=== PATIENT | male | born 1945 | race African-American/Black ===

== ENCOUNTER 2025-01-26 14:16 | Outpatient (AMB) | payer OTHER, SELFPAY ==
--- OUTSIDE RECORDS SUMMARY | 2024-06-23 11:30 | XMS_ITS ---
Author Organization [facility] [place] Address [address] [facility] [address] [place] [address] Care Team Providers Care Gas Engine Operator Generators Name Role Phone Migration, Provider Unavailable Unavailable REASON FOR VISIT CPX Encounters Encounter Location Date Provider Diagnosis [address] [address] 06/23/2024 Provider Migration Plan Of Treatment Next Appt Details Provider Name:Janelle Dietz, 03/04/2025 02:30:00 PM, [address] [place] [address], [place] [address], [place], [address], [phone] Progress Notes * ELENA PIERCEDOB:1945 ([age] yo M)Acc No.[id number]:06/23/2024 Progress Notes Patient: ELENA CHAMPAGNE Provider: Kevin lee Migration :1945 A ge:78 Y S ex:Male Date:06/23/2024 Address:[address] [place], [place] [phone] Subjective: * Chief Complaints: * C PX * Ocular Surgical History: Objective: Vision Examination: * Electronic signature of Prov ider Migration on 01/26/2025 at 06:03 PM EDT Sign off status: Pending * Provider: Kevin lee Migration Date: 06/23/2024 Generated for Kassandra hope/Molly/eTjennifersmitting on: 01/26/2025 06:03 PM EDT
--- OUTSIDE RECORDS SUMMARY | 2024-06-23 11:30 | XMS_ITS ---
Author Organization [facility], [place] Address [address] [facility] [address] [place] [address] Care Team Providers Care Dehydrator Tender Name Role Phone Kg Blackwood Unavailable [phone] REASON FOR VISIT CPX Encounters Encounter Location Date Provider Diagnosis [address] [place] [address] 06/23/2024 Kg Blackwood Plan Of Treatment Next Appt Details Provider Name:Janelle Dietz, 03/04/2025 02:30:00 PM, [address] [place] [address], Suite [facility], [place], [address], [phone] Progress Notes * ELENA PIERCEDOB:1945 ([age] yo M)Acc No.[id number]:06/23/2024 Progress Notes Patient: ELENA CHAMPAGNE Provider: Jonh VASQUEZ :1945 A ge:78 Y S ex:Male Date:06/23/2024 Address:[address] [place], [place] [phone] Subjective: * Chief Complaints: * C PX * Ocular Surgical History: Objective: Vision Examination: * Electronic signature of Darion Blackwood PA-C on 01/26/2025 at 06:04 PM EDT Sign off status: Pending * Provider: Jonh VASQUEZ Date: 06/23/2024 Generated for Kassandra ng/Faihsang/eTransmitting on: 0 01/26/2025 06:04 PM EDT
--- OUTSIDE RECORDS SUMMARY | 2024-09-18 11:30 | XMS_ITS ---
Author Organization [facility] [place] Address [address] [facility] [address] [place] [address] Care Team Providers Care Principal Systems Architect Name Role Phone Kg Blackwood Unavailable [phone] REASON FOR VISIT Follow-up Appt Encounters Encounter Location Date Provider Diagnosis [address] [place] [address] 09/18/2024 Kg Blackwood Plan Of Treatment Next Appt Details Provider Name:Janelle Dietz, 03/04/2025 02:30:00 PM, [address] [place] [address], [address], [place], [address], [phone] Progress Notes * ELENA PIERCEDOB:1945 ([age] yo M)Acc No.[id number]:09/18/2024 Progress Notes Patient: ELENA CHAMPAGNE Provider: Jonh VASQUEZ :1945 A ge:78 Y S ex:Male Date:09/18/2024 Address:[address] [place], [place] [phone] Subjective: * Chief Complaints: * F ollow-up Appt * Ocular Surgical History: Objective: Vision Examination: * Electronic signature of Darion Blackwood PA-C on 01/26/2025 at 06:04 PM EDT Sign off status: Pending * Provider: Jonh VASQUEZ Date: 09/18/2024 Generated for Printi ng/Faxing/eTransmitting on: 0 01/26/2025 06:04 PM EDT
--- OUTSIDE RECORDS SUMMARY | 2024-10-01 10:30 | XMS_ITS ---
Author Organization [facility] [place] Address [address] [facility] [address] [place] [address] Care Team Providers Care Shingles Roofer Name Role Phone Kg Blackwood Unavailable [phone] REASON FOR VISIT Follow-up Appt Encounters Encounter Location Date Provider Diagnosis [address] [place] [address] 10/01/2024 Kg Blackwood Plan Of Treatment Next Appt Details Provider Name:Janelle Dietz, 03/04/2025 02:30:00 PM, [address] [place] [address], [address], [place], [address], [phone] Progress Notes * ELENA PIERCEDOB:1945 ([age] yo M)Acc No.[id number]:10/01/2024 Progress Notes Patient: ELENA CHAMPAGNE Provider: Jonh VASQUEZ :1945 A ge:78 Y S ex:Male Date:10/01/2024 Address:[address] [place], [place] [phone] Subjective: * Chief Complaints: * F ollow-up Appt * Ocular Surgical History: Objective: Vision Examination: * Electronic signature of Darion Blackwood PA-C on 01/26/2025 at 06:04 PM EDT Sign off status: Pending * Provider: Jonh VASQUEZ Date: 10/01/2024 Generated for Printi ng/Faxing/eTransmitting on: 0 01/26/2025 06:04 PM EDT
--- OUTSIDE RECORDS SUMMARY | 2024-11-02 09:45 | XMS_ITS ---
Author Organization [facility] [place] Address [address] [place] [address] Care Team Providers Care Fire Sprinkler Inspector Name Role Phone Kg Blackwood Unavailable [phone] Allergies Allergen (clinical drug ingredient) Drug/Non Drug [...] Location Date Provider Diagnosis [facility], [address] [place] [phone] 11/02/2024 Kg Blackwood Assessments Encounter Date Diagnosis [...] Months, Reason: Echo f/u Provider Name:Janelle Dietz, 03/04/2025 02:30:00 PM, [address] [place] [address], [place] [address], [place], [address], [phone] Progress Notes * ELENA PIERCEDOB:1945 ([age] yo M)Acc No.[id number]:11/02/2024 Progress Notes Patient: ELENA CHAMPAGNE Provider: Jonh VASQUEZ :1945 A ge:79 Y S ex:Male Date:11/02/2024 Address:[address] [place], [place] [phone] Subjective: * Chief Complaints: * F ollow-up [...] VASQUEZ Date: 0 11/02/2024 Generated for Kassandra hope/Molly/Radhasmitting on: 0 01/26/2025 06:04 PM EDT
--- NOTE | 2025-01-26 14:21 | A.OFFVIS_ITS ---
Intake Visit Reasons: memory loss Allergies No Known Allergies Allergy (Verified 01/26/25 11:49) Medication List - Last Reconciled 01/26/25 by Senthil Rao MD acetaminophen 1,000 mg PO TID PRN allopurinol 300 mg PO DAILY amlodipine-valsartan 10-160 mg 1 tab PO DAILY aspirin 81 mg PO DAILY atorvastatin (Lipitor) 20 mg PO DAILY escitalopram oxalate 5 mg PO DAILY omeprazole 20 mg PO DAILY oxybutynin chloride ER 15 mg PO DAILY spironolactone 25 mg PO DAILY HPI Comments Details: This is a 79 yr old righthanded man who is here with his for evaluation of some morning headaches in the last 6 weeks usually relieved by taking 2 Tylenol within a couple of hours. He has no visual symptoms no sinus congestion. He has a history of obstructive sleep apnea but has not been using a mask for a few years. He is being treated for hypertension hyperlipidemia GERD prostatism. 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 He sometimes uses a wrong word and has some word searching difficulties. There are no safety issues with his driving or getting lost. [facility] Medical History (Updated 01/26/25 @ 14:31 by Senthil Rao MD) Memory loss KENNY (obstructive sleep apnea) Hypertension HLD (hyperlipidemia) Assessment & Plan Assessment & Plan (1) Tension headache: Code(s): G44.209 - Tension-type headache, unspecified, not intractable Category: Medical (2) Memory loss: Code(s): R41.3 - Other amnesia Category: Medical (3) KENNY (obstructive sleep apnea): Code(s): G47.33 - Obstructive sleep apnea (adult) (pediatric) Category: Medical Plan Home sleep study, MRI brain, SEdrate Orders: Orders Erythrocyte Sedimentation Rate Today G44.209 - Tension-type headache, unspecified, not intractable MR head/brain wo con 4 Weeks R41.3 - Other amnesia RT home sleep study Today G47.33 - Obstructive sleep apnea (adult) (pediatric) Coding Level of Care Code New Pt Level 5 (18705) Diagnoses Tension headache G44.209 Memory loss R41.3 KENNY (obstructive sleep apnea) G47.33
--- OUTSIDE RECORDS SUMMARY | 2025-01-26 18:04 | XMS_ITS | Clinical Summary ---
Author Organization [address] Address [address] [place] [phone] Phone Care Team Providers Care Rough Rice Grader Name Role Phone Kg Blackwood Primary Care Provider [phone] Allergies No known active allergies Medications allopurinoL (ZYLOPRIM) 300 mg tablet Take 1 tablet (300 mg total) by mouth 1 (one) time each day. Active aspirin 81 mg EC tablet Take 1 tablet (81 mg total) by mouth 1 (one) time each day. 4 Active atorvastatin (LIPITOR) 20 mg tablet Take 1 tablet (20 mg total) by mouth at bedtime. Active escitalopram (LEXAPRO) 10 mg tablet Take 1 tablet (10 mg total) by mouth 1 (one) time each day. 4 Active omeprazole (PriLOSEC) [address] capsule Take 1 capsule (20 mg total) by mouth 1 (one) time each day. Active spironolactone (ALDACTONE) 25 mg tablet Take 1 tablet (25 mg total) by mouth 1 (one) time each day. Active amLODIPine-vals ruslan-hcthiazid 10-160-25 mg tablet Take by mouth 1 (one) time each day. Active oxyBUTYnin XL (DITROPAN-XL) 15 mg 24 hr tablet Take 1 tablet (15 mg total) by mouth 1 (one) time each day. Do not crush, chew, or split. Active fluticasone propionate (FLONASE) 50 mcg/actuation nasal spray Administer 1 spray into each nostril 1 (one) time each day. Shake gently. Before first use, prime pump. After use, clean tip and replace cap. Active tadalafiL (CIALIS) 20 mg tablet Take 1 tablet (20 mg total) by mouth 1 (one) time each day if needed for erectile dysfunction. Active Active Problems Problem Noted Date Diagnosed Date HTN (hypertension) 10/23/2024 Assessment & Plan (10/23/2024 5:14 PM EDT): He has been on medication for hypertension for long time. Blood pressure is well-controlled. I will continue same regimen. Will obtain echocardiogram Orders: Transthoracic echocardiogram (TTE) complete with PRN contrast, bubble, strain, and 3D order panel; Future KENNY (obstructive sleep apnea) 10/23/2024 Assessment & Plan (10/23/2024 5:14 PM EDT): Has been wearing CPAP. Abnormal EKG 10/22/2024 Assessment & Plan (10/23/2024 5:14 PM EDT): EKG shows nonspecific T wave abnormality and this is likely caused by longstanding hypertension. He does not have a symptoms to suggest angina or heart failure. Will obtain echocardiogram to further assess cardiac structure and function. Will hold off ischemic workup for now until echocardiogram is performed. Orders: Ambulatory referral to Cardiology ECG 12 lead Surgical History Surgery Date Site/Laterality Comments HERNIA REPAIR PROCEDURE: HISTORICAL HERNIA REPAIR/ING Medical History Medical History Date Comments History of TIA (transient is chemic attack) 04/21/2018 DX:History of TIA (transient ischemic attack) HTN (hypertension) 04/21/2018 DX:HTN (hyper tension) Anxiety 04/21/2018 DX:Anxiety GERD (gastroesophageal reflux disease) 8 DX:GERD (gastroesophageal reflux disease) Osteoarthritis of knees, bilateral 04/21/2018 DX:Osteoarthritis of knees, bilateral Gout 04/21/2018 DX:Gout KENNY (obstructive sleep apnea) 02/06/2018 DX :KENNY (obstructive sleep apnea) Obesity without serious comorbidity 02/06/2018 DX:Obesity without serious comorbidity High blood pressure DX:High bloo d pressure Arthritis DX:Arthritis Social History Tobacco Use Types Packs/Day Years Used Date Smoking Tobacco: Never Smokeless Tobacco: Never Tobacco Cessation:Counseling Given: Not Answered Alcohol Use Standard Drinks/Week Comments Yes 0 (1 standard drink = 0.6 oz pur e alcohol) Sex and Gender Information Value Date Recorded Sex Assigned at Not on file Legal Sex Male 1:49 PM EST Gender Identity Not on file Sexual Orientation Not on file Obstetrics History Last Filed Vital Signs Vital Sign Reading Time Taken Comments Blood Pressure 120/60 10/23/2024 2:50 PM EDT Pulse 74 10/23/2024 2:50 PM EDT Temperature - - Respiratory Rate - - Oxygen Saturation 99% 10/23/2024 2:50 PM EDT Inhaled Oxygen Concentration - - Weight 99.3 kg (219 lb) 10/23/2024 2:50 PM EDT Height 167.6 cm (5' 6 ) 10/23/2024 2:50 PM EDT Body Mass Index 35.35 10/23/2024 2:50 PM EDT Plan of Treatment Upcoming Encounters Date Type Department Care Team (Late st Contact Info) Description 02/03/2025 1:30 PM EDT Ancillary Procedure [facility] [address] [facility] [address] [place] [address] Health Maintenance Due Date Last Done Comments DTaP,Tdap,and Td Vaccines (1 - Tdap) 10/04/1966 Pneumococcal Vaccine: 50+ Years (1 of 1 - PCV) 10/04/1997 Zoster Vaccines (1 of 2) 10/04/1997 RSV Immunization Adult Patients (1 - 1-dose 75+ series) 10/04/2022 Depression Screening 05/13/2024 Falls Risk Assessment 06/24/2024 Hepatitis C Screening 06/24/2024 Medicare Annual Wellness Visit 06/24/2024 Social Influencers of Health Screening 06/24/2024 COVID-19 Vaccine (3 - 2024-2 6 season) 2025 08/30/2020, 08/02/2020 Influenza Vaccine (#1) 2025 Hypertension/CHF/CAD Annual BMP Blood Test 06/23/2025 06/23/2024 Cholesterol Screening (Lipid Panel) 06/23/2029 06/23/2024 HIB Vaccines Aged Out No longer eligi ble based on patient's age to complete this topic HPV Vaccines Aged Out No longer eligi ble based on patient's age to complete this topic Hepatitis A Vaccines Aged Out No long er eligible based on patient's age to complete this topic Hepatitis B Vaccines Aged Out No long er eligible based on patient's age to complete this topic IPV Vaccines Aged Out No longer eligi ble based on patient's age to complete this topic MMR Vaccines Aged Out No longer eligi ble based on patient's age to complete this topic Meningococcal ACWY Vaccine Aged Out N o longer eligible based on patient's age to complete this topic Meningococcal B Vaccine Aged Out No l onger eligible based on patient's age to complete this topic RSV Immunization Patients Under 20 months Aged Out No longer eligible b ased on patient's age to complete this topic Varicella Vaccines Aged Out No longer eligible based on patient's age to complete this topic Procedures Procedure Name Priority Date/Time Associated Diagnosis Comments COMPREHENSIVE METABOLIC PANEL Routine 06/23/2024 12:00 AM EST Chronic fatigue, unspecified Pain in unspecified joint Hyperlipidemia, unspecified Essential (primary) hypertension LIPID PANEL WITH REFLEX TO DIRECT LDL Routine 06/23/2024 12:00 AM EST Chronic fatigue, unspecified Pain in unspecified joint Hyperlipidemia, unspecified Essential (primary) hypertension from Last 3 Months or Most Recently Relevant to Health Maintenance Results * (ABNORMAL) Lipid panel with reflex to direct LDL (06/23/2024 12:00 AM EST) Cholesterol 152 0 - 200 mg/dL LAB CHEMISTRY METHOD 06/23/2024 7:35 PM EST [facility] Triglycerides 218(H) 0 - 150 mg/dL LAB CHEMISTRY METHOD 06/23/2024 7:35 PM EST [facility] HDL 46 >=40 mg/dL LAB CHEMISTRY METHOD 06/23/2024 7:35 PM EST [facility] LDL Calculated 62 0 - 100 mg/dL LAB CHEMISTRY METHOD 06/23/2024 7:35 PM [facility] VLDL Cholesterol John 43.6 mg/dL LAB CHEMISTRY METHOD 06/23/2024 7:35 PM [facility] Non HDL Chol. (LDL+VLDL) 106 <145 mg/dL LAB CHEMISTRY METHOD 06/23/2024 7:35 PM [facility] Chol/HDL Ratio 3.3 0.0 - 4.4 LAB CHEMISTRY METHOD 06/23/2024 7:35 PM [facility] Blood Venous blood specimen / Unknown 06/23/2024 06/23/2024 6:08 PM EST us Kg VASQUEZ LAB BLOOD ORDERABLES Final Res ult [facility] [address] [place] [address], * Comprehensive metabolic panel (06/23/2024 12:00 AM EST) Sodium 140 133 - 145 mmol/L LAB CHEMISTRY METHOD 06/23/2024 7:35 PM [facility] Potassium 4.0 3.5 - 5.5 mmol/L LAB CHEMISTRY METHOD 06/23/2024 7:35 PM [facility] Chloride 109 96 - 110 mmol/L LAB CHEMISTRY METHOD 06/23/2024 7:35 PM [facility] CO2 22 21 - 32 mmol/L LAB CHEMISTRY METHOD 06/23/2024 7:35 PM [facility] Anion Gap 9 3 - 11 LAB CHEMISTRY METHOD 06/23/2024 7:35 PM [facility] Glucose 100 70 - 100 mg/dL LAB CHEMISTRY METHOD 06/23/2024 7:35 PM [facility] BUN 14 5 - 25 mg/dL LAB CHEMISTRY METHOD 06/23/2024 7:35 PM [facility] Creatinine 1.14 0.70 - 1.30 mg/dL LAB CHEMISTRY METHOD 06/23/2024 7:35 PM [facility] eGFR 67 >=60 mL/min/1. 73m2 LAB CHEMISTRY METHOD 06/23/2024 7:35 PM [facility] Comment:Calculation based on the Chronic Kidney Disease Epidemiology Collaboration (CKD-EPI) equation refit without adjustment for race. BUN/Creatinine Ratio 12.3 LAB CHEMISTRY METHOD 06/23/2024 7:35 PM [facility] Calcium 8.7 8.5 - 10.5 mg/dL LAB CHEMISTRY METHOD 06/23/2024 7:35 PM [facility] AST (SGOT) 22 10 - 42 unit/L LAB CHEMISTRY METHOD 06/23/2024 7:35 PM [facility] ALT (SGPT) 17 10 - 60 unit/L LAB CHEMISTRY METHOD 06/23/2024 7:35 PM [facility] Alkaline Phosphatase 111 42 - 121 unit/L LAB CHEMISTRY METHOD 06/23/2024 7:35 PM [facility] Total Protein 7.2 6.0 - 8.0 g/dL LAB CHEMISTRY METHOD 06/23/2024 7:35 PM [facility] Albumin 3.3 3.2 - 5.0 g/dL LAB CHEMISTRY METHOD 06/23/2024 7:35 PM [facility] Total Bilirubin 0.7 0.0 - 1.4 mg/dL LAB CHEMISTRY METHOD 06/23/2024 7:35 PM [facility] Blood Venous blood specimen / Unknown 06/23/2024 06/23/2024 6:08 PM EST us Kg VASQUEZ LAB BLOOD ORDERABLES Final Res ult [facility] [address] [place] [address], [place] [phone] from Last 3 Months or Most Recently Relevant to Health Maintenance Insurance [employer] Care Teams Rough Rice Grader Relationship Specialty Start Date End Date Kg Blackwood PA [address] [place] [id number] PCP - General Primary Care 10/14/24
--- OUTSIDE RECORDS SUMMARY | 2025-01-26 18:04 | XMS_ITS | Patient Health Record ---
Author Organization [facility] [place] Address [address] [place] [address] Care Team Providers Care Collection Analyst Name Role Phone JonahKg lopez Unavailable [phone] Migration, Provider Unavailable Unavailable Janelle Dietz Unavailable [phone] Allergies Allergen (clinical drug ingredient) Drug/Non Drug Allergy documented on EMR Reaction Allergy Type Onset Date Status clonazepam clonazePAM Unknown Drug Allergy Activ e sulindac Sulindac Unknown Drug Allergy Active torsemide Torsemide Unknown Drug Allergy Active Reason For Referral No Information Medications Medication SIG (Take, Route, Frequency, Duration) Notes Start Date End Date Status Meloxicam 7.5 MG Tablet 1 tablet Orally Once a day Active amLODIPine Besylate-Valsartan 10-160 MG Tablet 1 tablet Orally Once a day; Duration: 90 days Active Allopurinol 300 MG Tablet 1 tablet Orall y Once a day; Duration: 90 days Active Lexapro 10 MG Tablet 1 tablet Orally Onc e a day Active Loperamide HCl 2 MG Tablet 1 tablet as n eeded Orally Four times a day Active Baclofen 5 MG Tablet 1 tablet as needed Orally Once a day; Duration: 90 days 12/30/2024 Active Spironolactone 25 MG Tablet 1 tablet Ora lly Once a day Active Tadalafil 20 MG Tablet 1 tablet as neede d Orally Once a day Active Omeprazole 20 MG Capsule Delayed Release 1 capsule 1/2 to 1 hour before morning meal Orally Once a day Active oxyBUTYnin Chloride 5 MG Tablet 1 tablet Orally Once a day Active Fluticasone Propionate 50 MCG/ACT Suspension 1 spray in each nostril Nasally Twice a day Active Voltaren 1 % Gel as directed Externally Active Atorvastatin Calcium 20 MG Tablet 1 tablet Orally Once a day Active Vital Signs Heart Rate 80 /min 11/02/2024 Temperature 98.2 degrees Fahrenheit 11/02/2024 Respiratory Rate 12 /min 11/02/2024 Oximetry 97 % 11/02/2024 Blood pressure diastolic 80 mm Hg 11/02/2024 Weight-kg 96.62 kg 11/02/2024 Blood pressure systolic 148 mm Hg 11/02/2024 Weight 213 lbs 11/02/2024 Encounters Encounter Location Date Provider Diagnosis [facility] [place] [address] [place] [phone] 02/17/2024 Provider Migration [facility] [place] [address] [place] [phone] 06/23/2024 Kg Blackwood [facility] [place] [address] [place] [phone] 06/23/2024 Provider Migration [facility] [place] [address] [place] [phone] 09/18/2024 Kg Blackwood [facility] [place] [address] [place] [phone] 10/01/2024 Kg Blackwood [facility] [place] [address] [place] [phone] 11/02/2024 Kg Blackwood [facility] [place] [address] [place] [phone] 12/08/2024 Janelleher Dietz [facility] [place] [address] [place] [phone] 12/30/2024 Janelle Dietz Muscle spasm M62.838 Assessments Encounter Date Diagnosis (ICD Code) Assessment Notes Treatment Notes Treatment Clinical Notes Section Notes 12/30/2024 Muscle spasm (ICD-10 - M62.838) 11/02/2024 Pt reports feeling up and down-some days headache, some feels like running, some days slow hasnt take c pap in a couple months-f/u with sleep medicine-bee n over 2 years Plan Of Treatment Next Appt Details Provider Name:Janelle Dietz, 03/04/2025 02:30:00 PM, [address], Suite [facility], [place], [address], [phone] Insurance Providers Payer Name Payer Address Payer Phone Subscriber Number Group Number Insured Name Patient Relationship to Insured Coverage Start Date Coverage End Date [facility] Medicare Plan [address] [address] [place] [address] [id number] ELENA PIERCE Self - patient is the insured
--- OUTSIDE RECORDS SUMMARY | 2025-01-26 18:05 | XMS_ITS | Encounter Summary ---
Author Organization [facility] Address [address] [place] [address] Care Team Providers Care Chair Frame Builder Name Role Phone Kg Blackwood Primary Care Provider [phone] Encounter Details Date Type Department Care Team (Late Contact Info) Description 06/23/2024 Lab Requisition [facility] - Main Lab [address] [facility] [place] [address] Kg Blackwood PA 299 [facility] [address] [place], [place] [id number] Chronic fatigue, unspecified; Pain in unspecified joint; Hyperlipidemia, unspecified; Essential (primary) hypertension Social History Tobacco Use Types Packs/Day Years Used Date Smoking Tobacco: Never Assessed Alcohol Use Standard Drinks/Week Comments Yes 0 (1 standard drink = 0.6 oz pur e alcohol) Sex and Gender Information Value Date Recorded Sex Assigned at Not on file Legal Sex Male 1:49 PM EST Gender Identity Not on file Sexual Orientation Not on file documented as of this encounter Plan of Treatment Upcoming Encounters Date Type Department Care Team (Late Contact Info) Description 02/03/2025 1:30 PM EDT Ancillary Procedure [facility] [address] [facility] [address] [place] [address] documented as of this encounter Procedures Procedure Name Priority Date/Time Associated Diagnosis Comments PROSTATE SPECIFIC ANTIGEN SCREEN Routine 06/23/2024 12:00 AM EST Chronic fatigue, unspecified Pain in unspecified joint Hyperlipidemia, unspecified Essential (primary) hypertension SST - GOLD Routine 06/23/2024 12:00 AM EST Chronic fatigue, unspecified Pain in unspecified joint Hyperlipidemia, unspecified Essential (primary) hypertension LIPID PANEL WITH REFLEX TO DIRECT LDL Routine 06/23/2024 12:00 AM EST Chronic fatigue, unspecified Pain in unspecified joint Hyperlipidemia, unspecified Essential (primary) hypertension CBC WITH AUTO DIFFERENTIAL Routine 06/23/2024 12:00 AM EST Chronic fatigue, unspecified Pain in unspecified joint Hyperlipidemia, unspecified Essential (primary) hypertension CBC AND DIFFERENTIAL Routine 06/23/2024 12:00 AM EST Chronic fatigue, unspecified Pain in unspecified joint Hyperlipidemia, unspecified Essential (primary) hypertension HEMOGLOBIN A1C Routine 06/23/2024 12:00 AM EST Chronic fatigue, unspecified Pain in unspecified joint Hyperlipidemia, unspecified Essential (primary) hypertension COMPREHENSIVE METABOLIC PANEL Routine 06/23/2024 12:00 AM EST Chronic fatigue, unspecified Pain in unspecified joint Hyperlipidemia, unspecified Essential (primary) hypertension documented in this encounter Results * SST tube (06/23/2024 12:00 AM EST) Extra Tube Hold for add-ons. 10/08/2024 8:03 AM EDT [facility] Comment:Auto resulted. Blood Venous blood specimen / Unknown 06/23/2024 06/23/2024 6:08 PM EST us Kg VASQUEZ LAB BLOOD ORDERABLES Final Res ult [facility] [address] [place] [address], * (ABNORMAL) CBC auto differential (06/23/2024 12:00 AM EST) [facility] WBC 7.6 4.8 - 10.8 K/mcL LAB HEMETOLOGY METHOD 06/23/2024 8:36 PM [facility] RBC 4.30(L) 4.50 - 5.50 M/mcL LAB HEMETOLOGY METHOD 06/23/2024 8:36 PM EST [facility] Hemoglobin 14.0 13.5 - 17.5 g/dL LAB HEMETOLOGY METHOD 06/23/2024 8:36 PM [facility] Hematocrit 42.9 42.0 - 54.0 % LAB HEMETOLOGY METHOD 06/23/2024 8:36 PM [facility] MCV 100.2(H) 79.0 - 98.0 FL LAB HEMETOLOGY METHOD 06/23/2024 8:36 PM [facility] MCH 32.7(H) 27.0 - 32.0 pcg LAB HEMETOLOGY METHOD 06/23/2024 8:36 PM [facility] MCHC 32.6 32.0 - 37.0 g/dL LAB HEMETOLOGY METHOD 06/23/2024 8:36 PM [facility] RDW 13.8 11.0 - 15.0 % LAB HEMETOLOGY METHOD 06/23/2024 8:36 PM [facility] Platelets 244 130 - 400 K/mcL LAB HEMETOLOGY METHOD 06/23/2024 8:36 PM [facility] MPV 9.8 7.0 - 11.0 FL LAB HEMETOLOGY METHOD 06/23/2024 8:36 PM [facility] NRBC 0.0 <1.0 % LAB HEMETOLOGY METHOD 06/23/2024 8:36 PM [facility] NRBC Absolute 0.00 <0.10 K/mcL LAB HEMETOLOGY METHOD 06/23/2024 8:36 PM [facility] Neutrophils Relative 55.2 % LAB HEMETOLOGY METHOD 06/23/2024 8:36 PM [facility] Lymphocytes Relative 26.3 % LAB HEMETOLOGY METHOD 06/23/2024 8:36 PM [facility] Monocytes Relative 11.3 % LAB HEMETOLOGY METHOD 06/23/2024 8:36 PM [facility] Eosinophils Relative 5.8 % LAB HEMETOLOGY METHOD 06/23/2024 8:36 PM [facility] Basophils Relative 0.7 % LAB HEMETOLOGY METHOD 06/23/2024 8:36 PM [facility] Immature Granulocytes Relative 0.7 % LAB HEMETOLOGY METHOD 06/23/2024 8:36 PM [facility] Neutrophils Absolute 4.20 1.50 - 7.00 K/mcL LAB HEMETOLOGY METHOD 06/23/2024 8:36 PM [facility] Lymphocytes Absolute 2.00 1.00 - 5.00 K/mcL LAB HEMETOLOGY METHOD 06/23/2024 8:36 PM [facility] Monocytes Absolute 0.86 0.20 - 1.00 K/mcL LAB HEMETOLOGY METHOD 06/23/2024 8:36 PM [facility] Eosinophils Absolute 0.44 0.00 - 0.50 K/mcL LAB HEMETOLOGY METHOD 06/23/2024 8:36 PM [facility] Basophils Absolute 0.05 0.00 - 0.20 K/mcL LAB HEMETOLOGY METHOD 06/23/2024 8:36 PM [facility] Immature Granulocytes Absolute 0.05(H) 0.00 - 0.03 K/mcL LAB HEMETOLOGY METHOD 06/23/2024 8:36 PM EST [facility] Blood Venous blood specimen / Unknown 06/23/2024 06/23/2024 6:08 PM EST us Kg VASQUEZ LAB BLOOD ORDERABLES Final Res ult Performing Organization Address [facility] de Phone Number [facility] [address] [place] [address], * Prostate specific antigen screen (06/23/2024 12:00 AM EST) PSA 2.55 0.00 - 4.00 ng/mL LAB CHEMISTRY METHOD 06/23/2024 7:35 PM EST [facility] Blood Venous blood specimen / Unknown 06/23/2024 06/23/2024 6:08 PM EST Narrative [facility] - 06/23/2024 7:35 PM EST The Siemens Advia Centaur Chemiluminescent Immunoassay is used. Results obtained with different assay methods or kits cannot be used interchangeably. Results cannot be interpreted as absolute evidence of the presence or absence of malignant disease. us Kg VASQUEZ LAB BLOOD ORDERABLES Final Res ult Performing Organization Address [facility] Co de Phone Number [facility] [address] [place] [address], * Hemoglobin A1c (06/23/2024 12:00 AM EST) Hemoglobin A1C 5.1 <6.5 % LAB CHEMISTRY METHOD 06/23/2024 10:07 PM EST [facility] Mean Bld Glu Estim. 100 mg/dL LAB CHEMISTRY METHOD 06/23/2024 10:07 PM EST [facility] Blood Venous blood specimen / Unknown 06/23/2024 06/23/2024 6:08 PM EST us Kg VASQUEZ LAB BLOOD ORDERABLES Final Res ult [facility] [address] [place] [address], [place] [phone] * (ABNORMAL) Lipid panel with reflex to direct LDL (06/23/2024 12:00 AM EST) Cholesterol 152 0 - 200 mg/dL LAB CHEMISTRY METHOD 06/23/2024 7:35 PM EST [facility] Triglycerides 218(H) 0 - 150 mg/dL LAB CHEMISTRY METHOD 06/23/2024 7:35 PM EST [facility] HDL 46 >=40 mg/dL LAB CHEMISTRY METHOD 06/23/2024 7:35 PM EST [facility] LDL Calculated 62 0 - 100 mg/dL LAB CHEMISTRY METHOD 06/23/2024 7:35 PM EST [facility] VLDL Cholesterol John 43.6 mg/dL LAB CHEMISTRY METHOD 06/23/2024 7:35 PM EST [facility] Non HDL Chol. (LDL+VLDL) 106 <145 mg/dL LAB CHEMISTRY METHOD 06/23/2024 7:35 PM EST [facility] Chol/HDL Ratio 3.3 0.0 - 4.4 LAB CHEMISTRY METHOD 06/23/2024 7:35 PM [facility] Blood Venous blood specimen / Unknown 06/23/2024 06/23/2024 6:08 PM EST Kg VASQUEZ LAB BLOOD ORDERABLES Final Res ult [facility] [address] [place] [address], [place] [phone] * Comprehensive metabolic panel (06/23/2024 12:00 AM EST) Sodium 140 133 - 145 mmol/L LAB CHEMISTRY METHOD 06/23/2024 7:35 PM [facility] Potassium 4.0 3.5 - 5.5 mmol/L LAB CHEMISTRY METHOD 06/23/2024 7:35 PM [facility] Chloride 109 96 - 110 mmol/L LAB CHEMISTRY METHOD 06/23/2024 7:35 PM [facility] CO2 22 21 - 32 mmol/L LAB CHEMISTRY METHOD 06/23/2024 7:35 PM [facility] Anion Gap 9 3 - 11 LAB CHEMISTRY METHOD 06/23/2024 7:35 PM [facility] Glucose 100 70 - 100 mg/dL LAB CHEMISTRY METHOD 06/23/2024 7:35 PM [facility] BUN 14 5 - 25 mg/dL LAB CHEMISTRY METHOD 06/23/2024 7:35 PM [facility] Creatinine 1.14 0.70 - 1.30 mg/dL LAB CHEMISTRY METHOD 06/23/2024 7:35 PM [facility] eGFR 67 >=60 mL/min/1. 73m2 LAB CHEMISTRY METHOD 06/23/2024 7:35 PM [facility] Comment:Calculation based on the Chronic Kidney Disease Epidemiology Collaboration (CKD-EPI) equation refit without adjustment for race. BUN/Creatinine Ratio 12.3 LAB CHEMISTRY METHOD 06/23/2024 7:35 PM [facility] Calcium 8.7 8.5 - 10.5 mg/dL LAB CHEMISTRY METHOD 06/23/2024 7:35 PM [facility] AST (SGOT) 22 10 - 42 unit/L LAB CHEMISTRY METHOD 06/23/2024 7:35 PM [facility] ALT (SGPT) 17 10 - 60 unit/L LAB CHEMISTRY METHOD 06/23/2024 7:35 PM [facility] Alkaline Phosphatase 111 42 - 121 unit/L LAB CHEMISTRY METHOD 06/23/2024 7:35 PM [facility] Total Protein 7.2 6.0 - 8.0 g/dL LAB CHEMISTRY METHOD 06/23/2024 7:35 PM EST [facility] Albumin 3.3 3.2 - 5.0 g/dL LAB CHEMISTRY METHOD 06/23/2024 7:35 PM EST [facility] Total Bilirubin 0.7 0.0 - 1.4 mg/dL LAB CHEMISTRY METHOD 06/23/2024 7:35 PM EST [facility] Blood Venous blood specimen / Unknown 06/23/2024 06/23/2024 6:08 PM EST Kg VASQUEZ LAB BLOOD ORDERABLES Final Res ult [facility] [address] [place] [address], documented in this encounter Visit Diagnoses Diagnosis Chronic fatigue, unspecified Pain in unspecified joint Hyperlipidemia, unspecified Essential (primary) hypertension Unspecified essential hypertension documented in this encounter Care Teams Chair Frame Builder Relationship Specialty Start Date End Date Kg Blackwood PA [address] [place] [address] PCP - General Primary Care 10/14/24 documented as of this encounter
== END 2025-01-26 14:46 | disposition home or self-care (01) ==
PROVIDERS: PCP Internal Medicine; Visit Provider Psychiatry & Neurology Neurology
DX: G44.209 Tension-type headache, unspecified, not intractable (principal); R41.3 Other amnesia; G47.33 Obstructive sleep apnea (adult) (pediatric)
CPT/HCPCS: 99204

== ENCOUNTER 2025-01-26 14:16 | Outpatient (REF) | payer MEDICARE, SELFPAY | END 2025-01-26 14:17 | disposition home or self-care (01) | LOC: HO.LAB 14:16 | PROVIDERS: PCP Internal Medicine; Visit Provider Psychiatry & Neurology Neurology | DX: G44.209 Tension-type headache, unspecified, not intractable (principal); G47.33 Obstructive sleep apnea (adult) (pediatric) | CPT/HCPCS: 36415; 85652 ==

== ENCOUNTER 2025-03-28 11:17 | Outpatient (REF) | payer MEDICARE, SELFPAY ==
--- OUTSIDE RECORDS SUMMARY | 2023-09-30 08:30 | XMS_ITS ---
Author Organization [facility] [place] Address [address] [facility] [address] [place] [address] Care Team Providers Care Seamless Hosiery Knitter Name Role Phone Migration, Provider Unavailable Unavailable REASON FOR VISIT Follow-up Appt Encounters Encounter Location Date Provider Diagnosis [address] [place] [address] 09/30/2023 Provider Migration Plan Of Treatment Next Appt Details Provider Name:Janelle Dietz, 07/09/2025 09:00:00 AM, [address] [place] [address], [place] [address], [place], [address], [phone] Progress Notes * ELENA PIERCEDOB:1945 ([age] yo M)Acc No.[id number]:09/30/2023 Progress Notes Patient: ELENA CHAMPAGNE Provider: Kevin lee Migration :1945 A ge:77 Y S ex:Male Date:09/30/2023 Address:[address] [place], [place] [phone] Subjective: * Chief Complaints: * F ollow-up Appt * Ocular Surgical History: Objective: Vision Examination: * Electronic signature of Prov ider Migration on 03/28/2025 at 11:23 AM EST Sign off status: Pending * Provider: Kevin lee Migration Date: 09/30/2023 Generated for Kassandra hope/Molly/eTjennifersmitting on: 05/28/2024 11:23 AM EST
--- OUTSIDE RECORDS SUMMARY | 2024-01-09 10:00 | XMS_ITS ---
Author Organization [facility] [place] Address [address] [facility] [address] [place] [address] Care Team Providers Care Entertainment Lawyer Name Role Phone Migration, Provider Unavailable Unavailable REASON FOR VISIT Follow-up Appt Encounters Encounter Location Date Provider Diagnosis [address] [place] [address] 01/09/2024 Provider Migration Plan Of Treatment Next Appt Details Provider Name:Janelle Dietz, 07/09/2025 09:00:00 AM, [address] [place] [address], [place] [address], [place], [address], [phone] Progress Notes * ELENA PIERCEDOB:1945 ([age] yo M)Acc No.[id number]:01/09/2024 Progress Notes Patient: ELENA CHAMPAGNE Provider: Kevin lee Migration :1945 A ge:78 Y S ex:Male Date:01/09/2024 Address:[address] [place] [address] Subjective: * Chief Complaints: * F ollow-up Appt * Ocular Surgical History: Objective: Vision Examination: * Electronic signature of Prov ider Migration on 03/28/2025 at 11:25 AM EST Sign off status: Pending * Provider: Kevin lee Migration Date: 0 01/09/2024 Generated for Kassandra hope/Molly/eTjennifersmitting on: 05/28/2024 11:25 AM EST
--- OUTSIDE RECORDS SUMMARY | 2024-02-17 09:30 | XMS_ITS ---
Author Organization [facility] [place] Address [address] [facility] [address] [place] [address] Care Team Providers Care Engineering Clerk Name Role Phone Migration, Provider Unavailable Unavailable REASON FOR VISIT Follow-up Appt Encounters Encounter Location Date Provider Diagnosis [address] [place] [address] 02/17/2024 Provider Migration Plan Of Treatment Next Appt Details Provider Name:Janelle Dietz, 07/09/2025 09:00:00 AM, [address] [place] [address], [place] [address], [place], [address], [phone] Progress Notes * ELENA PIERCEDOB:1945 ([age] yo M)Acc No.[id number]:02/17/2024 Progress Notes Patient: ELENA CHAMPAGNE Provider: Kevin lee Migration :1945 A ge:78 Y S ex:Male Date:02/17/2024 Address:[address] [place], [place] [phone] Subjective: * Chief Complaints: * F ollow-up Appt * Ocular Surgical History: Objective: Vision Examination: * Electronic signature of Prov ider Migration on 03/28/2025 at 11:22 AM EST Sign off status: Pending * Provider: Kevin lee Migration Date: Generated for Kassandra hope/Molly/eTjennifersmitting on: 05/28/2024 11:22 AM EST
--- OUTSIDE RECORDS SUMMARY | 2024-06-23 10:30 | XMS_ITS ---
Author Organization [facility] [place] Address [address] [facility] [address] [place] [address] Care Team Providers Care Skin Peeling Machine Operator Name Role Phone Migration, Provider Unavailable Unavailable REASON FOR VISIT CPX Encounters Encounter Location Date Provider Diagnosis [address] [address] 06/23/2024 Provider Migration Plan Of Treatment Next Appt Details Provider Name:Janelle Dietz, 07/09/2025 09:00:00 AM, [address] [place] [address], [place] [address], [place], [address], [phone] Progress Notes * ELENA PIERCEDOB:1945 ([age] yo M)Acc No.[id number]:06/23/2024 Progress Notes Patient: ELENA CHAMPAGNE Provider: Kevin lee Migration :1945 A ge:78 Y S ex:Male Date:06/23/2024 Address:[address] [place], [place] [phone] Subjective: * Chief Complaints: * C PX * Ocular Surgical History: Objective: Vision Examination: * Electronic signature of Prov ider Migration on 03/28/2025 at 11:22 AM EST Sign off status: Pending * Provider: Kevin lee Migration Date: 0 06/23/2024 Generated for Kassandra hope/Molly/Isaakitting on: 05/28/2024 11:22 AM EST
--- OUTSIDE RECORDS SUMMARY | 2024-06-23 10:30 | XMS_ITS ---
Author Organization [facility] [place] Address [address] [facility] [address] [place] [address] Care Team Providers Care Build And Release Manager Name Role Phone Kg Blackwood Unavailable [phone] REASON FOR VISIT CPX Encounters Encounter Location Date Provider Diagnosis [address] [place] [address] 06/23/2024 Kg Blackwood Plan Of Treatment Next Appt Details Provider Name:Janelle Dietz, 07/09/2025 09:00:00 AM, [address] [place] [address], [address] [facility], [place], [address], [phone] Progress Notes * ELENA PIERCEDOB:1945 ([age] yo M)Acc No.[id number]:06/23/2024 Progress Notes Patient: ELENA CHAMPAGNE Provider: Jonh VASQUEZ :1945 A ge:78 Y S ex:Male Date:06/23/2024 Address:[address] [place] [address] Subjective: * Chief Complaints: * C PX * Ocular Surgical History: Objective: Vision Examination: * Electronic signature of Darion Blackwood PA-C on 03/28/2025 at 11:23 AM EST Sign off status: Pending * Provider: Jonh VASQUEZ Date: 0 06/23/2024 Generated for Kassandra ng/Faihsang/eTransmitting on: 1 05/28/2024 11:23 AM EST
--- OUTSIDE RECORDS SUMMARY | 2024-09-18 10:30 | XMS_ITS ---
Author Organization [facility] [place] Address [address] [facility] [address] [place] [address] Care Team Providers Care Adhesive Primer Name Role Phone Kg Blackwood Unavailable [phone] REASON FOR VISIT Follow-up Appt Encounters Encounter Location Date Provider Diagnosis [address] [place] [address] 09/18/2024 Kg Blackwood Plan Of Treatment Next Appt Details Provider Name:Janelle Dietz, 07/09/2025 09:00:00 AM, [address] [place] [address], [address], [place], [address], [phone] Progress Notes * ELENA PIERCEDOB:1945 ([age] yo M)Acc No.[id number]:09/18/2024 Progress Notes Patient: ELENA CHAMPAGNE Provider: Jonh VASQUEZ :1945 A ge:78 Y S ex:Male Date:09/18/2024 Address:[address] [place], [place] [phone] Subjective: * Chief Complaints: * F ollow-up Appt * Ocular Surgical History: Objective: Vision Examination: * Electronic signature of Darion Blackwood PA-C on 03/28/2025 at 11:23 AM EST Sign off status: Pending * Provider: Jonh VASQUEZ Date: 0 09/18/2024 Generated for Printi ng/Faxing/eTransmitting on: 1 05/28/2024 11:23 AM EST
--- OUTSIDE RECORDS SUMMARY | 2024-10-01 09:30 | XMS_ITS ---
Author Organization [facility] [place] Address [address] [facility] [address] [place] [address] Care Team Providers Care Panel Machine Setter Name Role Phone Kg Blackwood Unavailable [phone] REASON FOR VISIT Follow-up Appt Encounters Encounter Location Date Provider Diagnosis [address] [place] [address] 10/01/2024 Kg Blackwood Plan Of Treatment Next Appt Details Provider Name:Janelle Dietz, 07/09/2025 09:00:00 AM, [address] [place] [address], [address], [place], [address], [phone] Progress Notes * ELENA PIERCEDOB:1945 ([age] yo M)Acc No.[id number]:10/01/2024 Progress Notes Patient: ELENA CHAMPAGNE Provider: Jonh VASQUEZ :1945 A ge:78 Y S ex:Male Date:10/01/2024 Address:[address] [place], [place] [phone] Subjective: * Chief Complaints: * F ollow-up Appt * Ocular Surgical History: Objective: Vision Examination: * Electronic signature of Darion Blackwood PA-C on 03/28/2025 at 11:24 AM EST Sign off status: Pending * Provider: Jonh VASQUEZ Date: 0 10/01/2024 Generated for Printi ng/Faxing/eTransmitting on: 1 05/28/2024 11:24 AM EST
--- OUTSIDE RECORDS SUMMARY | 2024-11-02 08:45 | XMS_ITS ---
Author Organization [facility] [place] Address [address] [place] [address] Care Team Providers Care Concrete Mason Name Role Phone Kg Blackwood Unavailable [phone] Allergies Allergen (clinical drug ingredient) Drug/Non Drug [...] Location Date Provider Diagnosis [facility], [address] [place] [phone] 11/02/2024 Kg Blackwood Assessments Encounter Date Diagnosis [...] 4 Months, Reason: Echo f/u Provider Name:Janelle Dietz, 07/09/2025 09:00:00 AM, [address] [place] [address], [place] [address], [place], [address], [phone] Progress Notes * ELENA PIERCEDOB:1945 ([age] yo M)Acc No.[id number]:11/02/2024 Progress Notes Patient: ELENA CHAMPAGNE Provider: Jonh VASQUEZ :1945 A ge:79 Y S ex:Male Date:11/02/2024 Address:[address] [place], [place] [id number] Subjective: * Chief Complaints: * F ollow-up [...] VASQUEZ Date: 0 11/02/2024 Generated for Kassandra hope/Molly/eTransmitting on: 1 05/28/2024 11:23 AM EST
--- OUTSIDE RECORDS SUMMARY | 2025-03-04 09:30 | XMS_ITS ---
Author Organization [facility] [place] Address [address] [place] [address] Care Team Providers Care Leather Stitcher Name Role Phone Janelle Dietz Unavailable [phone] Allergies Allergen (clinical drug ingredient) Drug/Non Drug [...] 03/04/20 Blood pressure diastolic 72 mm Hg Heart Rate 46 /min 03/04/2025 Respiratory Rate 16 /min 03/04/2025 Height 69 in 03/04/2025 Weight 213.8 lbs 03/04/2025 BMI 31.57 kg/m2 03/04/2025 Oximetry 97 % 03/04/2025 Height-cm 175.26 cm 03/04/2025 Weight-kg 96.98 kg 03/04/2025 Encounters Encounter Location Date Provider Diagnosis [facility] [place] [address] [facility] [address] [place] [address] 03/04/2025 Janelle Mirela Plan Of Treatment Next Appt Details Provider Name:Janelle Harrisviola, 07/09/2025 09:00:00 AM, [address] [facility], [address], [place], [address], [phone] Progress Notes * ELENA PIERCEDOB:1945 ([age] yo M)Acc No.[id number]:03/04/2025 Progress Notes Patient: ELENA CHAMPAGNE Provider: Chet Dietz :1945 A ge:79 Y S ex:Male Date:03/04/2025 Address:[address] [place] [address] Subjective: * Chief Complaints: * 4 month [...] * Electronic signature of Pascual Dietz on 03/28/2025 at 11:24 AM EST Sign off status: Pending * Provider: Chet Dietz Date: Generated for Kassandra hope/Molly/Ramy on: 05/28/2024 11:24 AM EST
--- NOTE | ~2025-03-28 | MR_ITS ---
EXAMINATION: MR BRAIN WITHOUT CONTRAST CLINICAL INFORMATION: R 41.3. COMPARISON: None available. TECHNIQUE: MRI of the brain was obtained using routine sequences without contrast. FINDINGS: No restricted diffusion. Bilateral multifocal patchy and confluent deep periventricular white matter deep white matter and subcortical white matter hyperintense T2 FLAIR signal involving centrum semiovale and cannon radiata. Patchy and punctate hyperintense T2 FLAIR signal within the timothy and midbrain. There is a hyperintense T2 FLAIR signal with the cribriform pattern at the corpus striatum nuclei. Multiple old lacunar infarcts in the thalami and corpus callosum. Prominence of the extra-axial CSF spaces cerebral sulci and ventricles. Focal susceptibility signal right cerebellum. Multiple susceptibility signal foci within the brainstem and basal ganglia. Vascular susceptibility signal with a medusa pattern in the right frontal lobe. No acute intracranial hemorrhage, mass effect, midline shift, hydrocephalus or herniation. Cobian-white matter differentiation is normal. Sellar/suprasellar region demonstrated no signal abnormality or masses. Craniocervical junction is intact with normal position of the cerebellar tonsils. Flow-void signal within the main cerebral vessels is normal. There is a CSF extra-axial signal within the inferior left middle cranial fossa best seen on the axial T2 sequence image #6 and coronal FLAIR sequences image #19. Mucosal thickening within the frontal sinuses and ethmoid air cells.. MR/MR head/brain wo con IMPRESSION: No acute ischemia. 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 Old microhemorrhages likely related to hypertension. 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 Recommend additional coronal T2 sequence to better evaluate the left middle cranial fossa. Electronically signed by: Jose G Lamar MD 03/29/2025 07:05 AM [facility] [place]
--- OUTSIDE RECORDS SUMMARY | 2025-03-28 11:23 | XMS_ITS | Encounter Summary ---
Author Organization [facility] Address [address] [place] [address] Care Team Providers Care Farm Implement Mechanic Name Role Phone Kg Blackwood Primary Care Provider [phone] Encounter Details Date Type Department Care Team (Late st Contact Info) Description 06/23/2024 Lab Requisition [facility] - Main Lab [address] [place] [address] Kg Blackwood PA [address] [address] Chronic fatigue, unspecified; Pain in unspecified joint; [...] as of this encounter Plan of Treatment Not on file documented as of this encounter Procedures Procedure [...] Hold for add-ons. 10/08/2024 8:03 AM EDT [facility] Comment:Auto resulted. Blood Venous blood specimen / Unknown 06/23/2024 06/23/2024 6:08 PM EST us Kg VASQUEZ LAB BLOOD ORDERABLES Final Res ult [facility]) [facility] [address] [place] [address], [place] [phone] * (ABNORMAL) CBC auto differential (06/23/2024 12:00 AM EST) WBC 7.6 4.8 - 10.8 K/mcL LAB HEMETOLOGY METHOD 06/23/2024 8:36 PM [facility] RBC 4.30(L) 4.50 - 5.50 M/mcL LAB HEMETOLOGY METHOD 06/23/2024 8:36 PM [facility] Hemoglobin 14.0 13.5 - 17.5 g/dL LAB HEMETOLOGY METHOD 06/23/2024 8:36 PM [facility] Hematocrit 42.9 42.0 - 54.0 % LAB HEMETOLOGY METHOD 06/23/2024 8:36 PM [facility] MCV 100.2(H) 79.0 - 98.0 FL LAB HEMETOLOGY METHOD 06/23/2024 8:36 PM [facility] MCH 32.7(H) 27.0 - 32.0 pcg LAB HEMETOLOGY METHOD 06/23/2024 8:36 PM [facility] MCHC 32.6 32.0 - 37.0 g/dL LAB HEMETOLOGY METHOD 06/23/2024 8:36 PM [facility] RDW 13.8 11.0 - 15.0 % LAB HEMETOLOGY METHOD 06/23/2024 8:36 PM [facility] Platelets 244 130 - 400 K/mcL LAB HEMETOLOGY METHOD 06/23/2024 8:36 PM [facility] MPV 9.8 7.0 - 11.0 FL LAB HEMETOLOGY METHOD 06/23/2024 8:36 PM [facility] NRBC 0.0 <1.0 % LAB HEMETOLOGY METHOD 06/23/2024 8:36 PM [facility] NRBC Absolute 0.00 <0.10 K/mcL LAB HEMETOLOGY METHOD 06/23/2024 8:36 PM [facility] Neutrophils Relative 55.2 % LAB HEMETOLOGY METHOD 06/23/2024 8:36 PM [facility] Lymphocytes Relative 26.3 % LAB HEMETOLOGY METHOD 06/23/2024 8:36 PM [facility] Monocytes Relative 11.3 % LAB HEMETOLOGY METHOD 06/23/2024 8:36 PM [facility] Eosinophils Relative 5.8 % LAB HEMETOLOGY METHOD 06/23/2024 8:36 PM [facility] Basophils Relative 0.7 % LAB HEMETOLOGY METHOD 06/23/2024 8:36 PM [facility] Immature Granulocytes Relative 0.7 % LAB HEMETOLOGY METHOD 06/23/2024 8:36 PM [facility] Neutrophils Absolute 4.20 1.50 - 7.00 K/mcL LAB HEMETOLOGY METHOD 06/23/2024 8:36 PM [facility] Lymphocytes Absolute 2.00 1.00 - 5.00 K/mcL LAB HEMETOLOGY METHOD 06/23/2024 8:36 PM [facility] Monocytes Absolute 0.86 0.20 - 1.00 K/mcL LAB HEMETOLOGY METHOD 06/23/2024 8:36 PM [facility] Eosinophils Absolute 0.44 0.00 - 0.50 K/mcL LAB HEMETOLOGY METHOD 06/23/2024 8:36 PM [facility] Basophils Absolute 0.05 0.00 - 0.20 K/mcL LAB HEMETOLOGY METHOD 06/23/2024 8:36 PM [facility] Immature Granulocytes Absolute 0.05(H) 0.00 - 0.03 K/mcL LAB HEMETOLOGY METHOD 06/23/2024 8:36 PM [facility] Blood Venous blood specimen / Unknown 06/23/2024 06/23/2024 6:08 PM EST Kg VASQUEZ LAB BLOOD ORDERABLES Final Res ult Performing Organization Address [facility]/ZIP Co de Phone Number [facility] [address] [place] [address], [place] [phone] * Prostate specific antigen screen (06/23/2024 12:00 AM EST) PSA 2.55 0.00 - 4.00 ng/mL LAB CHEMISTRY METHOD 06/23/2024 7:35 PM EST [facility] Blood Venous blood specimen / Unknown 06/23/2024 06/23/2024 6:08 PM EST Narrative [facility] - 06/23/2024 7:35 PM EST The Siemens Advia SMTDP [employer] Chemiluminescent Immunoassay is used. Results obtained with different assay methods or kits cannot be used interchangeably. Results cannot be interpreted as absolute evidence of the presence or absence of malignant disease. Kg VASQUEZ LAB BLOOD ORDERABLES Final Res ult Performing Organization Address [facility]/ZIP Co de Phone Number [facility] [address] [place] [address], [place] [phone] * Hemoglobin A1c (06/23/2024 12:00 AM EST) Hemoglobin A1C 5.1 <6.5 % LAB CHEMISTRY METHOD 06/23/2024 10:07 PM EST [facility] Mean Bld Glu Estim. 100 mg/dL LAB CHEMISTRY METHOD 06/23/2024 10:07 PM EST [facility] Blood Venous blood specimen / Unknown 06/23/2024 06/23/2024 6:08 PM EST Kg VASQUEZ LAB BLOOD ORDERABLES Final Res ult Performing Organization Address City/[facility]/ZIP Co de Phone Number [facility] [address] [place] [address], [place] [phone] * (ABNORMAL) Lipid panel with reflex to direct LDL (06/23/2024 12:00 AM EST) Cholesterol 152 0 - 200 mg/dL LAB CHEMISTRY METHOD 06/23/2024 7:35 PM [facility] Triglycerides 218(H) 0 - 150 mg/dL LAB CHEMISTRY METHOD 06/23/2024 7:35 PM [facility] HDL 46 >=40 mg/dL LAB CHEMISTRY METHOD 06/23/2024 7:35 PM [facility] LDL Calculated 62 0 - 100 mg/dL LAB CHEMISTRY METHOD 06/23/2024 7:35 PM [facility] VLDL Cholesterol John 43.6 mg/dL LAB CHEMISTRY METHOD 06/23/2024 7:35 PM [facility] Non HDL Chol. (LDL+VLDL) 106 <145 mg/dL LAB CHEMISTRY METHOD 06/23/2024 7:35 PM [facility] Chol/HDL Ratio 3.3 0.0 - 4.4 LAB CHEMISTRY METHOD 06/23/2024 7:35 PM [facility] Blood Venous blood specimen / Unknown 06/23/2024 06/23/2024 6:08 PM EST us Kg VASQUEZ LAB BLOOD ORDERABLES Final Res ult [facility] [address] [place] [address], * Comprehensive metabolic panel (06/23/2024 12:00 AM EST) Sodium 140 133 - 145 mmol/L LAB CHEMISTRY METHOD 06/23/2024 7:35 PM [facility] Potassium 4.0 3.5 - 5.5 mmol/L LAB CHEMISTRY METHOD 06/23/2024 7:35 PM [facility] Chloride 109 96 - 110 mmol/L LAB CHEMISTRY METHOD 06/23/2024 7:35 PM [facility] CO2 22 21 - 32 mmol/L LAB CHEMISTRY METHOD 06/23/2024 7:35 PM [facility] Anion Gap 9 3 - 11 LAB CHEMISTRY METHOD 06/23/2024 7:35 PM [facility] Glucose 100 70 - 100 mg/dL LAB CHEMISTRY METHOD 06/23/2024 7:35 PM [facility] BUN 14 5 - 25 mg/dL LAB CHEMISTRY METHOD 06/23/2024 7:35 PM [facility] Creatinine 1.14 0.70 - 1.30 mg/dL LAB CHEMISTRY METHOD 06/23/2024 7:35 PM [facility] eGFR 67 >=60 mL/min/1. 73m2 LAB CHEMISTRY METHOD 06/23/2024 7:35 PM [facility] Comment:Calculation based on the Chronic Kidney Disease Epidemiology Collaboration (CKD-EPI) equation refit without adjustment for race. BUN/Creatinine Ratio 12.3 LAB CHEMISTRY METHOD 06/23/2024 7:35 PM [facility] Calcium 8.7 8.5 - 10.5 mg/dL LAB CHEMISTRY METHOD 06/23/2024 7:35 PM [facility] AST (SGOT) 22 10 - 42 unit/L LAB CHEMISTRY METHOD 06/23/2024 7:35 PM [facility] ALT (SGPT) 17 10 - 60 unit/L LAB CHEMISTRY METHOD 06/23/2024 7:35 PM [facility] Alkaline Phosphatase 111 42 - 121 unit/L LAB CHEMISTRY METHOD 06/23/2024 7:35 PM [facility] Total Protein 7.2 6.0 - 8.0 g/dL LAB CHEMISTRY METHOD 06/23/2024 7:35 PM [facility] Albumin 3.3 3.2 - 5.0 g/dL LAB CHEMISTRY METHOD 06/23/2024 7:35 PM EST [facility] Total Bilirubin 0.7 0.0 - 1.4 mg/dL LAB CHEMISTRY METHOD 06/23/2024 7:35 PM EST [facility] Blood Venous blood specimen / Unknown 06/23/2024 06/23/2024 6:08 PM EST Kg VASQUEZ LAB BLOOD ORDERABLES Final Res ult [facility] [address] [place] [address], documented in this encounter Visit Diagnoses Diagnosis Chronic fatigue, unspecified Pain in unspecified joint Hyperlipidemia, unspecified Essential (primary) hypertension Unspecified essential hypertension documented in this encounter Care Teams Farm Implement Mechanic Relationship Specialty Start Date End Date Kg Blackwood PA [address] [address] PCP - General Primary Care 10/14/24 documented as of this encounter
--- OUTSIDE RECORDS SUMMARY | 2025-03-28 11:23 | XMS_ITS | Patient Health Record ---
Author Organization [facility] [place] Address [address] [place] [address] Care Team Providers Care Rn Relief Charge Name Role Phone Kg Blackwood Unavailable [phone] Migration, Provider Unavailable Unavailable Janelle Dietz Unavailable [phone] Allergies Allergen (clinical drug ingredient) Drug/Non Drug [...] a day; Duration: 90 days 12/30/2024 Active Voltaren 1 % Gel as directed Externally Active Tadalafil 20 MG Tablet 1 tablet as neede d Orally Once a day Active Spironolactone 25 MG Tablet 1 tablet Ora lly Once a day Active oxyBUTYnin Chloride 5 MG Tablet 1 tablet Orally Once a day Active Omeprazole 20 MG Capsule Delayed Release 1 capsule 1/2 to 1 hour before morning meal Orally Once a day Active Social History Section Notes: Patient indicates n/a to the above Vital Signs Heart Rate 46 /min 03/04/2025 Temperature 98.2 degrees Fahrenheit 11/02/2024 Respiratory Rate 16 /min 03/04/2025 Height-cm 175.26 cm 03/04/2025 Oximetry 97 % 03/04/2025 Blood pressure diastolic 72 mm Hg 03/04/2025 Weight-kg 96.98 kg 03/04/2025 Height 69 in 03/04/2025 Blood pressure systolic 149 mm Hg 03/04/2025 Weight 213.8 lbs 03/04/2025 BMI 31.57 kg/m2 03/04/2025 Encounters Encounter Location Date Provider Diagnosis [facility] [place] [address] [address] 06/23/2024 Kg Blackwood [facility], [address] [address] 06/23/2024 Provider Migration [facility], [address] [address] 09/18/2024 Kg Blackwood [facility], [address] [address] 10/01/2024 Kg Blackwood [facility] [place] [address] [address] 11/02/2024 Kg Blackwood [facility], [address] [address] 03/04/2025 Janelle Sagan [facility], [address] [address] 12/08/2024 Janelle Sagan [facility], [address] [address] 12/30/2024 Janelle Sagan Muscle spasm M62.838 [facility] [place] [address] [address] 02/01/2025 Janelle Sagan Muscle spasm M62.838 Assessments Encounter Date Diagnosis (ICD Code) Assessment Notes Treatment Notes Treatment Clinical Notes Section Notes 12/30/2024 Muscle spasm (ICD-10 - M62.838) 02/01/2025 Muscle spasm (ICD-10 - M62.838) 11/02/2024 Pt reports feeling up and down-some days headache, some feels like running, some days slow hasnt take c pap in a couple months-f/u with sleep medicine-bee n over 2 years Plan Of Treatment Next Appt Details Provider Name:Janelle Dietz, 07/09/2025 09:00:00 AM, [address], [address], [place], [address], [phone] Insurance Providers Payer Name Payer Address Payer Phone Subscriber Number Group Number Insured Name Patient Relationship to Insured Coverage Start Date Coverage End Date [facility] Medicare Plan [address] [address] [place] [address] [id number] ELENA PIERCE Self - patient is the insured Medical (General) History Surgical History Surgery Date(Month/Year) No surgeries
--- OUTSIDE RECORDS SUMMARY | 2025-03-28 11:24 | XMS_ITS | Clinical Summary ---
Author Organization [facility] Address [address] [place] [address] Care Team Providers Care Tax Assessor Name Role Phone Jose Osorio MD Primary Care Provider [phone] Allergies No known active allergies Medications Medication Sig Dispensed Refills Start Date End Date Status allopurinol (ZYLOPRIM) 300 MG tablet Take 300 mg by mouth daily. 0 06/15/2020 Active amLODIPine (NORVASC) tablet 10 mg Take 10 mg by mouth. 0 Active aspirin 81 MG chewable tablet Chew 81 mg by mouth. 0 Active atorvastatin (LIPITOR) tablet 20 mg Take 20 mg by mouth. 0 Active chlorthalidone (HYGROTON) 25 MG tablet TAKE ONE TABLET BY MOUTH EVERY DAY 0 06/15/2020 Active furosemide (LASIX) 20 MG tablet Take 20 mg by mouth. 0 Active tadalafil (CIALIS) 20 MG tablet Take 20 mg by mouth daily. 0 06/24/2020 Active omeprazole (PriLOSEC) 20 MG capsule Take 20 mg by mouth daily. 0 Active oxybutynin (DITROPAN XL) 15 MG 24 hr tablet Take 15 mg by mouth daily. 0 Active spironolactone (ALDACTONE) tablet 25 mg Take 25 mg by mouth daily. 0 Active Diclofenac Sodium (Voltaren) 1 % GEL Apply topically. 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 Social History Tobacco Use Types Packs/Day Years Used Date Smoking Tobacco: Never Assessed Sex and Gender Information Value Date Recorded Sex Assigned at Not on file Gender Identity Not on file Sexual Orientation Not on file Job Start Date Occupation Industry Not on file Not on file Not on file Last Filed Vital Signs Vital Sign Reading Time Taken Comments Blood Pressure - - Pulse - - Temperature - - Respiratory Rate - - Oxygen Saturation - - Inhaled Oxygen Concentration - - Weight 102.1 kg (225 lb) 09/15/2020 10:03 AM EDT Height 167.6 cm (5' 6 ) 09/15/2020 10:03 AM EDT Body Mass Index 36.32 09/15/2020 10:03 AM EDT Plan of Treatment Health Maintenance Due Date Last Done Comments Hepatitis C Screening 1945 COVID-19 Vaccine (#1) 04[birth year]06/1946 Depression Screening 1959 BMI Counseling 10/04/1965 Preventative Health Evaluation 10/04/1965 DTap / Tdap / Td (1 - Tdap) 10/04/1966 Shingrix-Zoster Vaccine (1 of 2) 10/04/1997 Fall Risk Assessment 10/04/2012 Pneumococcal Vaccine (1 of 1 - PCV) 10/04/2012 RSV Adult > 60+ Yrs or Pregn ant (1 - 1-dose 75+ series) 10/04/2022 Influenza Vaccine (#1) 2025 Hepatitis B Vaccines Aged Out No long er eligible based on patient's age to complete this topic RSV Ped < 20 months Aged Out No longe r eligible based on patient's age to complete this topic Care Teams Tax Assessor Relationship Specialty Start Date End Date Jose Osorio MD [address] [place] [address] PCP - General Internal Medicine 08/19/20
--- OUTSIDE RECORDS SUMMARY | 2025-03-28 11:24 | XMS_ITS | Encounter Summary ---
Author Organization [facility] Address [address] [place] [address] Care Team Providers Care Raw Cheese Worker Name Role Phone Kg Blackwood Primary Care Provider [phone] Reason for Referral * Cardiac Stress Testing (Routine) - Authorized Specialty Diagnoses / Procedures Referred By Contac t Referred To Contact Cardiology Diagnoses Abnormal EKG Procedures Exercise nuclear stress test with myocardial perfusion [place] MYOCARDIAL PERFUSION IMAGING TOMOGRAPHIC MULTI STUDIES AT REST OR STRESS [place] MYOCARDIAL PERFUSION IMAGING TOMOGRAPHIC SINGLE STUDY AT REST OR STRESS [place] CARDIOVASCULAR STRESS TEST GLOBAL [place] CV TMST/BIKE MAX/SUBMAX CONTINUOUS ECG MON/PHARM STRESS SUPVSR ONLY [place] CV STRESS TEST/BIKE CONT ECG MON/PHARM STRESS INTERP & REPORT ONLY [place] TEST STRESS CARDIOVASCULAR TRACING ONLY Heaven Chan MD [facility] [place] [facility] [address] [place] [phone] [facility] Referral ID Status Reason Start Date Expiration Date V isits Requested Visits Authorized [id number] Authorized 02/09/2025 02/09/2026 3 3 Encounter Details Date Type Department Care Team (Late st Contact Info) Description 02/09/2025 Results Follow-Up [facility] [address] [place] [id number] Heaven Chan MD [address] [place] [address] [place] [address] Social History Tobacco Use Types Packs/Day Years Used Date Smoking Tobacco: Never Smokeless Tobacco: Never Alcohol Use Standard Drinks/Week Comments Yes 0 (1 standard drink = 0.6 oz pur e alcohol) Sex and Gender Information Value Date Recorded Sex Assigned at Not on file Legal Sex Male 1:49 PM EST Gender Identity Not on file Sexual Orientation Not on file documented as of this encounter Progress Notes * Daisha Barahona - 02/10/2025 11:24 AM EDT Nuclear stress test scheduled for 02/19/25 @ 1pm, I called pt and left message on machine, also mailed instructions. documented in this encounter Plan of Treatment Not on file documented as of this encounter Results * NM LEXISCAN STRESS TEST W/ MYOCARDIAL PERFUSION (02/19/2025 3:23 PM EDT) Exercise/injec tion duration (min) 3 CV PACS STRESS Exercise/injec tion duration (sec) 36 CV PACS STRESS Peak SBP 142 mmHg CV PACS STRESS Peak DBP 70 mmHg CV PACS STRESS Peak HR 122 bpm CV PACS STRESS Baseline HR 76 bpm CV PACS STRESS Baseline SBP 139 mmHg CV PACS STRESS Baseline DBP 78 mmHg CV PACS STRESS Estimated workload 2.9 METS CV PACS STRESS Percent HR 85 % CV PACS STRESS Rate Pressure Product 17,324.0 mmHg*bpm CV PACS STRESS Target HR 122 bpm CV PACS STRESS TID 0.94 CV PACS STRESS Nuc Stress EF 63 % CV PAC S STRESS Nuc Rest EF 60 % CV PACS STRESS BSA 2.16 m2 CV PACS STRESS Anatomical Region Laterality Modality Nuclear Medicine 02/19/2025 1:59 PM EDT 02/19/2025 2:26 PM EDT Impressions 02/22/2025 10:44 AM EDT Normal Exercise stress test with nuclear imaging. Low exercise capacity No chest pain or EKG changes consistent with ischemia. Nuclear imaging revealed no significant perfusion defects . There is a normal TID ratio. Gated SPECT imaging was performed and revealed an LVEF of 60 %. Narrative 02/22/2025 10:44 AM EDT Stress Findings A modified Simón protocol stress test was performed. Overall, the patient's exercise capacity was below average. Total stress time was 3 min and 36 sec. The test was stopped because the patient experienced fatigue. Blood pressure demonstrated a normal response. Heart rate demonstrated a normal response. The patient reported no symptoms during the stress test. ECG 79 year old male with non-specific ECG abnormalities undergoing DOT physical. PMH includes HTN, HLD. The ECG shows normal sinus rhythm. The ECG axis is normal. Non-specific ST abnormalities noted at baseline. Arrhythmias during stress: frequent atrial ectopy with exercise. There is non-specific ST abnormalities during stress in the setting of baseline abnormal ECG and heavy artifact. There were no arrhythmias during recovery. Nuclear Study Quality Study technique: MPI, SPECT, multi, rest and stress, 1 day and gated. Overall image quality is good. CT attenuation correction was utilized. No radiopharmaceutical dose was extravasated. Stress Function Comments Stress ejection fraction is 63%. Rest Function Comments Resting ejection fraction was 60%. us Heaven Chan MD CV STRESS PROCEDURES Final Resul t documented in this encounter Visit Diagnoses Diagnosis Abnormal EKG- Primary Nonspecific abnormal electrocardiogram (ECG) (EKG) Abnormal EKG Nonspecific abnormal electrocardiogram (ECG) (EKG) documented in this encounter Care Teams Raw Cheese Worker Relationship Specialty Start Date End Date Kg Blackwood PA [address] [place] [address] PCP - General Primary Care 10/14/24 documented as of this encounter
--- OUTSIDE RECORDS SUMMARY | 2025-03-28 11:25 | XMS_ITS | Clinical Summary ---
Author Organization [address] Address [address] [place] [phone] Phone Care Team Providers Care Educational Sign Language Interpreter Name Role Phone Kg Blackwood Primary Care Provider [phone] Allergies No known active allergies Medications allopurinoL [...] Ambulatory referral to Cardiology ECG 12 lead Encounters Date Type Department Care Team Description 02/26/2025 Results Follow-Up [facility] [address] [place] [address] Heaven Chan MD 02/19/2025 1:00 PM EDT Ancillary Procedure [facility] [address] [place] [address] Abnormal EKG 02/09/2025 Results Follow-Up [facility] [address] [place] [address] Heaven Chan MD 02/03/2025 1:30 PM EDT Ancillary Procedure [facility] [address] [address] Hypertension, unspecified type from Last 3 Months Surgical History Surgery Date Site/Laterality Comments HERNIA [...] Sign Reading Time Taken Comments Blood Pressure 139/78 02/19/2025 1:06 PM EDT Pulse 74 10/23/2024 2:50 PM EDT Temperature - - Respiratory Rate - - Oxygen Saturation 99% 10/23/2024 2:50 PM EDT Inhaled Oxygen Concentration - - Weight 97.1 kg (214 lb) 02/19/2025 3:12 PM EDT Height 172.7 cm (5' 8 ) 02/19/2025 3:12 PM EDT Body Mass Index 32.54 02/19/2025 3:12 PM EDT Plan of Treatment Health Maintenance Due [...] Procedure Name Priority Date/Time Associated Diagnosis Comments NM LEXISCAN STRESS TEST W/ MYOCARDIAL PERFUSION Routine 02/19/2025 3:23 PM EDT Abnormal EKG TRANSTHORACIC ECHOCARDIOGRAM (TTE) COMPLETE W/ CONTRAST Routine 02/03/2025 4:08 PM EDT Hypertension, unspecified type COMPREHENSIVE METABOLIC PANEL Routine 06/23/2024 12:00 AM EST Chronic fatigue, unspecified Pain in unspecified joint Hyperlipidemia, unspecified Essential (primary) hypertension LIPID PANEL WITH REFLEX TO DIRECT LDL Routine 06/23/2024 12:00 AM EST Chronic fatigue, unspecified Pain in unspecified joint Hyperlipidemia, unspecified Essential (primary) hypertension from Last 3 Months or Most Recently Relevant to Health Maintenance Results * NM LEXISCAN STRESS TEST W/ [...] MD CV STRESS PROCEDURES Final Resul t * (ABNORMAL) TRANSTHORACIC ECHOCARDIOGRAM (TTE) COMPLETE W/ CONTRAST (02/03/2025 4:08 PM EDT) LV EDV (A2C) 115 mL CV PACS LV EDV (A4C) 140 mL CV PACS LV Diastolic Volume (BP) 133 62 - 150 mL CV PACS LV ESV (A2C) 43 mL CV PACS LV ESV (A4C) 60 mL CV PACS LV Systolic Volume (BP) 53 21 - 61 mL CV PACS IVSD 1.1(A) 0.6 - 1.0 cm CV PACS LVIDD 4.8 4.2 - 5.8 cm CV PACS LVIDS 3.3 2.5 - 4.0 cm CV PACS LVOT Diameter 2.5 cm CV PACS LVOT Mean Obdulio 0.4 m/s CV PACS LVOT Mean Grad 1 mmHg CV PACS LVOT Mean Grad 1 mmHg CV PACS LVOT Peak VTI 12.6 cm CV PACS LVOT Peak Obdulio 0.7 m/s CV PACS LVOT Peak Gradient 2 mmHg CV PACS LVPWD 1.2(A) 0.6 - 1.0 cm CV PACS MV E' Tissue Velocity Lateral 8 cm/s CV PACS MV E' Tissue Velocity Septal 4 cm/s CV PACS Ejection Fraction (A2C) 63 % CV PACS Ejection Fraction (A4C) 57 % CV PACS Ejection Fraction (BP) 60 % CV PACS LVOT Area 4.9 cm2 CV PACS LVOT Stroke Volume 62 mL CV PACS Left Atrium Minor [place] 5.3 cm CV PACS Left Atrium Major [place] 5.3 cm CV PACS LA Area Sys (A2C) 23 cm2 CV PACS LA Area Sys (A4C) 21 cm2 CV PACS LA Volume (BP) 67 mL CV PACS LA Size 4.4 cm CV PACS RA Area 10.9 cm2 CV PACS RA 2D Volume 21 mL CV PACS AV Regurgitation PHT 620 ms CV PACS AR Max Velocity 2.6 m/s CV PACS AV Regurgitant Volume 26 mmHg CV PACS AV Peak Obdulio 0.8 m/s CV PACS AV Peak Gradient 3 mmHg CV PACS AV Mean Gradient 2 mmHg CV PACS Ao VTI 16.1 cm CV PACS AV Area Continuity Equation 3.8 cm2 CV PACS AV Area Peak Velocity 4.3 cm2 CV PACS Aortic Arch 3.0 cm CV PACS Ascending Aorta 3.5 cm CV PACS Aortic Sinus Valsalva 3.8 cm CV PACS IVC Proximal 1.4 cm CV PACS MV Deceleration [place] 2.6 m/s2 CV PACS E Wave Deceleration Time 208 119 - 242 ms CV PACS MV PHT 61 ms CV PACS MV Peak A Obdulio 0.88 m/s CV PACS MV Peak A Obdulio 0.88 m/s CV PACS MV Peak E Obdulio 0.53 m/s CV PACS MV Mean Gradient 1 mmHg CV PACS MV Mean Gradient 1 mmHg CV PACS MV Mean Gradient 1 mmHg CV PACS MV Mean Gradient 1 mmHg CV PACS MV VTI 24.1 cm CV PACS Mitral Valve Max Velocity 1.2 m/s CV PACS MV Peak Gradient 5 mmHg CV PACS MV Area PHT 3.6 cm2 CV PACS MV Area Continuity Equation 2.6 cm2 CV PACS PV Acceleration Time 120 ms CV PACS PV Acceleration Time 479 ms CV PACS PV Acceleration Time 92 ms CV PACS PV Acceleration Time 230 ms CV PACS PV Mean Gradient 1 mmHg CV PACS PV VTI 12.5 cm CV PACS PV Peak Velocity 0.9 m/s CV PACS PV Peak Gradient 3 mmHg CV PACS RV Diastolic Basal Dimension 3.6 2.5 - 4.1 cm CV PACS RV S' 10 cm/s CV PACS TAPSE 22 mm CV PACS TR Peak Velocity 2.42 m/s CV PACS TR Peak Gradient 23 mmHg CV PACS LV ESV Index (A4C) 28 mL/m2 CV PACS LV EDV Index (A4C) 66 mL/m2 CV PACS E/E' Ratio Septal 13 CV PACS E/E' Ratio Averaged 10 CV PACS LVOT Stroke Index 29 mL/m2 CV PACS LA Dimension Index 2D 2.1 cm/m2 CV PACS Relative Wall Thickness ratio 0.50 CV PACS LVOT:AV VTI Index 0.78 CV PACS FS 31 % CV PACS LV Mass 2D 206 g CV PACS Ascending Aorta Index 1.65 cm/m2 CV PACS MV VTI:LVOT VTI ratio 1.9 CV PACS LVOT flow 196 mL/s CV PACS RA 2D Volume Index 10 mL/m2 CV PACS NICO Index (VTI) 1.81 cm2/m2 CV PACS NICO Index (Pk Obdulio) 2.03 cm2/m2 CV PACS LVIDD Index 2.26 cm/m2 CV PACS LVIDS Index 1.56 cm/m2 CV PACS AV Velocity Ratio 0.88 CV PACS E/E' Ratio Lateral 7 CV PACS LV Systolic Volume Index (BP) 25 mL/m2 CV PACS LV Diastolic Volume Index (BP) 63 mL/m2 CV PACS LA Volume Index (BP) 32 mL/m2 CV PACS LV Mass Index 2D 97 g/m2 CV PACS LV EDV Index (A2C) 54 mL/m2 CV PACS LV ESV Index (A2C) 20 mL/m2 CV PACS BSA 2.17 m2 CV PACS Right Ventricular Peak Systolic Pressure 26 mmHg CV PACS Est. RA Pressure 3 mmHg CV PACS Anatomical Region Laterality Modality Ultrasound Narrative 02/05/2025 6:01 PM EDT Left ventricle cavity size is normal. There is mild concentric hypertrophy. Systolic function is normal with an ejection fraction of 55-60%. There are no regional LV wall motion abnormalities. There is Grade I (mild) diastolic dysfunction. Right ventricle cavity is normal. Right ventricular systolic function is normal. No hemodynamically significant valvular disease. The right ventricular systolic pressure is normal and estimated at 26 mmHg. Left Ventricle Left ventricle cavity size is normal. There is mild concentric hypertrophy. Systolic function is normal with an ejection fraction of 55-60%. There are no regional LV wall motion abnormalities. There is Grade I (mild) diastolic dysfunction. Right Ventricle Right ventricle cavity appears normal. Systolic function is normal. Left Atrium Left atrium cavity size is normal. 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 Right Atrium Right atrium cavity is normal. IVC/SVC Inferior vena cava structure is normal. RA pressures is estimated to be 3 mmHg (IVC diameter <21 mm and decreases >50% during inspiration). Mitral Valve The leaflets are mildly thickened. There is mild annular calcification. There is trace regurgitation. There is no evidence of mitral valve stenosis. Tricuspid Valve Tricuspid valve structure is normal. There is trace regurgitation. There is no evidence of tricuspid valve stenosis. The right ventricular systolic pressure is normal. The RVSP is estimated at 26 mmHg. Aortic Valve The aortic valve is trileaflet. The leaflets are mildly thickened. There is trace regurgitation with a centrally directed jet. There is no evidence of aortic valve stenosis. Pulmonic Valve There is mild pulmonic valve regurgitation. There is no evidence of pulmonic valve stenosis. Ascending Aorta The aorta appears normal in size. Pericardium Pericardium appears normal. There is no pericardial effusion. Study Details Overall the study quality was adequate. Definity contrast was given to enhance imaging. us Heaven Chan MD CV ECHO PROCEDURES Final Result * (ABNORMAL) Lipid panel with reflex to direct LDL (06/23/2024 12:00 AM EST) Cholesterol 152 0 - 200 mg/dL LAB CHEMISTRY METHOD 06/23/2024 7:35 PM [facility] Triglycerides 218(H) 0 - 150 mg/dL LAB CHEMISTRY METHOD 06/23/2024 7:35 PM [facility] HDL 46 >=40 mg/dL LAB CHEMISTRY METHOD 06/23/2024 7:35 PM [facility] LDL Calculated 62 0 - 100 mg/dL LAB CHEMISTRY METHOD 06/23/2024 7:35 PM [facility] VLDL Cholesterol John 43.6 mg/dL LAB CHEMISTRY METHOD 06/23/2024 7:35 PM [facility] Non HDL Chol. (LDL+VLDL) 106 <145 mg/dL LAB CHEMISTRY METHOD 06/23/2024 7:35 PM [facility] Chol/HDL Ratio 3.3 0.0 - 4.4 LAB CHEMISTRY METHOD 06/23/2024 7:35 PM [facility] Blood Venous blood specimen / Unknown 06/23/2024 06/23/2024 6:08 PM EST us Kg VASQUEZ LAB BLOOD ORDERABLES Final Res ult [facility] [address] [place] [address], [place] [phone] * Comprehensive metabolic panel (06/23/2024 12:00 AM EST) Sodium 140 133 - 145 mmol/L LAB CHEMISTRY METHOD 06/23/2024 7:35 PM [facility] Potassium 4.0 3.5 - 5.5 mmol/L LAB CHEMISTRY METHOD 06/23/2024 7:35 PM [facility] Chloride 109 96 - 110 mmol/L LAB CHEMISTRY METHOD 06/23/2024 7:35 PM [facility] CO2 22 21 - 32 mmol/L LAB CHEMISTRY METHOD 06/23/2024 7:35 PM [facility] Anion Gap 9 3 - 11 LAB CHEMISTRY METHOD 06/23/2024 7:35 PM [facility] Glucose 100 70 - 100 mg/dL LAB CHEMISTRY METHOD 06/23/2024 7:35 PM [facility] BUN 14 5 - 25 mg/dL LAB CHEMISTRY METHOD 06/23/2024 7:35 PM [facility] Creatinine 1.14 0.70 - 1.30 mg/dL LAB CHEMISTRY METHOD 06/23/2024 7:35 PM [facility] eGFR 67 >=60 mL/min/1. 73m2 LAB CHEMISTRY METHOD 06/23/2024 7:35 PM [facility] Comment:Calculation based on the Chronic Kidney Disease Epidemiology Collaboration (CKD-EPI) equation refit without adjustment for race. BUN/Creatinine Ratio 12.3 LAB CHEMISTRY METHOD 06/23/2024 7:35 PM [facility] Calcium 8.7 8.5 - 10.5 mg/dL LAB CHEMISTRY METHOD 06/23/2024 7:35 PM [facility] AST (SGOT) 22 10 - 42 unit/L LAB CHEMISTRY METHOD 06/23/2024 7:35 PM [facility] ALT (SGPT) 17 10 - 60 unit/L LAB CHEMISTRY METHOD 06/23/2024 7:35 PM [facility] Alkaline Phosphatase 111 42 - 121 unit/L LAB CHEMISTRY METHOD 06/23/2024 7:35 PM [facility] Total Protein 7.2 6.0 - 8.0 g/dL LAB CHEMISTRY METHOD 06/23/2024 7:35 PM [facility] Albumin 3.3 3.2 - 5.0 g/dL LAB CHEMISTRY METHOD 06/23/2024 7:35 PM [facility] Total Bilirubin 0.7 0.0 - 1.4 mg/dL LAB CHEMISTRY METHOD 06/23/2024 7:35 PM [facility] Blood Venous blood specimen / Unknown 06/23/2024 06/23/2024 6:08 PM EST us Kg VASQUEZ LAB BLOOD ORDERABLES Final Res ult [facility] [address] [place] [address], from Last 3 Months or Most Recently Relevant to Health Maintenance Insurance [employer] Care Teams Educational Sign Language Interpreter Relationship Specialty Start Date End Date Kg Blackwood PA [address] [place] [address] PCP - General Primary Care 10/14/24
== END 2025-03-28 11:18 | disposition home or self-care (01) ==
LOC: HO.MRI 11:17
PROVIDERS: PCP Internal Medicine; Visit Provider Psychiatry & Neurology Neurology
DX: R41.3 Other amnesia (principal)
CPT/HCPCS: 70551

== ENCOUNTER → 2025-03-28 11:17 | Outpatient (BNV) | payer MEDICARE, SELFPAY | PROVIDERS: PCP Internal Medicine; Visit Provider Radiology Diagnostic Radiology | DX: R41.3 Other amnesia (principal) | CPT/HCPCS: 70551 ==

== ENCOUNTER → 2025-04-22 08:19 | Outpatient (REF) | payer MEDICARE, SELFPAY | LOC: HO.SL 08:19 | PROVIDERS: PCP Internal Medicine; Visit Provider Psychiatry & Neurology Neurology | DX: G47.33 Obstructive sleep apnea (adult) (pediatric) (principal); R06.83 Snoring; R40.0 Somnolence | CPT/HCPCS: 95806 ==

== ENCOUNTER → 2025-04-22 08:42 | Outpatient (BNV) | payer MEDICARE, SELFPAY | PROVIDERS: PCP Internal Medicine; Visit Provider Internal Medicine | DX: G47.33 Obstructive sleep apnea (adult) (pediatric) (principal) | CPT/HCPCS: 95806 ==

== ENCOUNTER 2025-04-28 12:05 | Outpatient (AMB) | payer MEDICARE, SELFPAY ==
--- OUTSIDE RECORDS SUMMARY | 2024-01-09 10:00 | XMS_ITS ---
Author Organization [facility] [place] Address [address] [facility] [address] [place] [address] Care Team Providers Care Modern Languages Professor Name Role Phone Migration, Provider Unavailable Unavailable REASON FOR VISIT Follow-up Appt Encounters Encounter Location Date Provider Diagnosis [address] [address] 01/09/2024 Provider Migration Plan Of Treatment Next Appt Details Provider Name:Janelle Dietz, 04/30/2025 10:15:00 AM, [address] [place] [address], [address], [phone] Provider Name:Janelle Dietz, 07/09/2025 09:00:00 AM, [address] [place] [address], [address], [phone] Progress Notes * ELENA PIERCEDOB:1945 ([age] yo M)Acc No.[id number]:01/09/2024 Progress Notes Patient: ELENA CHAMPAGNE Provider: Kevin rodriguezvider Migration :1945 A ge:78 Y S ex:Male Date:01/09/2024 Address:[address] [place], [place] [phone] Subjective: * Chief Complaints: * F ollow-up Appt * Ocular Surgical History: Objective: Vision Examination: * Electronic signature of Prov ider Migration on 04/28/2025 at 03:57 PM EST Sign off status: Pending * Provider: Kevin carlder Migration Date: 0 01/09/2024 Generated for Kassandra hope/Molly/eTransmitting on: 1 06/29/2024 03:57 PM EST
--- OUTSIDE RECORDS SUMMARY | 2024-02-17 09:30 | XMS_ITS ---
Author Organization [facility] [place] Address [address] [facility] [address] [place] [address] Care Team Providers Care Fret Saw Operator Name Role Phone Migration, Provider Unavailable Unavailable REASON FOR VISIT Follow-up Appt Encounters Encounter Location Date Provider Diagnosis [address] [address] 02/17/2024 Provider Migration Plan Of Treatment Next Appt Details Provider Name:Janelle Dietz, 04/30/2025 10:15:00 AM, [address] [place] [address], [address], [phone] Provider Name:Janelle Dietz, 07/09/2025 09:00:00 AM, [address] [place] [address], [address], [phone] Progress Notes * ELENA PIERCEDOB:1945 ([age] yo M)Acc No.[id number]:02/17/2024 Progress Notes Patient: ELENA CHAMPAGNE Provider: Kevin rodriguezvider Migration :1945 A ge:78 Y S ex:Male Date:02/17/2024 Address:[address] [place], [place] [phone] Subjective: * Chief Complaints: * F ollow-up Appt * Ocular Surgical History: Objective: Vision Examination: * Electronic signature of Prov ider Migration on 04/28/2025 at 03:56 PM EST Sign off status: Pending * Provider: Kevin carlder Migration Date: 1 Generated for Kassandra hope/Molly/eTransmitting on: 1 06/29/2024 03:56 PM EST
--- OUTSIDE RECORDS SUMMARY | 2024-06-23 10:30 | XMS_ITS ---
Author Organization [facility] [place] Address [address] [facility] [address] [place] [address] Care Team Providers Care School Physical Therapist Name Role Phone Kg Blackwood Unavailable [phone] REASON FOR VISIT CPX Encounters Encounter Location Date Provider Diagnosis [address] [address] 06/23/2024 Kg Blackwood Plan Of Treatment Next Appt Details Provider Name:Janelle Mirela, 04/30/2025 10:15:00 AM, [address] [place] [address], [address], [address], [phone] Provider Name:Janelle Mirela, 07/09/2025 09:00:00 AM, [address] [place] [address], [address], [address], [phone] Progress Notes * ELENA PIERCEDOB:1945 ([age] yo M)Acc No.[id number]:06/23/2024 Progress Notes Patient: ELENA CHAMPAGNE Provider: Jonh VASQUEZ :1945 A ge:78 Y S ex:Male Date:06/23/2024 Address:[address] [place] [address] Subjective: * Chief Complaints: * C PX * Ocular Surgical History: Objective: Vision Examination: * Electronic signature of Darion Blackwood PA-C on 04/28/2025 at 03:57 PM EST Sign off status: Pending * Provider: Jonh VASQUEZ Date: 0 06/23/2024 Generated for Kassandra hope/Molly/eTransmitting on: 1 06/29/2024 03:57 PM EST
--- OUTSIDE RECORDS SUMMARY | 2024-06-23 10:30 | XMS_ITS ---
Author Organization [facility] [place] Address [address] [facility] [address] [place] [address] Care Team Providers Care Supervisor Crack Off Name Role Phone Migration, Provider Unavailable Unavailable REASON FOR VISIT CPX Encounters Encounter Location Date Provider Diagnosis [address] [place] [address] 06/23/2024 Provider Migration Plan Of Treatment Next Appt Details Provider Name:Janelle Dietz, 04/30/2025 10:15:00 AM, [address] [place] [address], [address], [address], [phone] Provider Name:Janelle Dietz, 07/09/2025 09:00:00 AM, [address] [place] [address], [place] [address], [place], [address], [phone] Progress Notes * ELENA PIERCEDOB:1945 ([age] yo M)Acc No.[id number]:06/23/2024 Progress Notes Patient: ELENA CHAMPAGNE Provider: Kevin rovider Migration :1945 A ge:78 Y S ex:Male Date:06/23/2024 Address:[address] [place], [place] [phone] Subjective: * Chief Complaints: * C PX * Ocular Surgical History: Objective: Vision Examination: * Electronic signature of Prov ider Migration on 04/28/2025 at 03:56 PM EST Sign off status: Pending * Provider: Kevin rodriguezvider Migration Date: 0 06/23/2024 Generated for Malaikai ng/Molly/eTransmitting on: 1 06/29/2024 03:56 PM EST
--- OUTSIDE RECORDS SUMMARY | 2024-09-18 10:30 | XMS_ITS ---
Author Organization [facility] [place] Address [address] [facility] [address] [place] [address] Care Team Providers Care Needle Process Felt Goods Supervisor Name Role Phone Kg Blackwood Unavailable [phone] REASON FOR VISIT Follow-up Appt Encounters Encounter Location Date Provider Diagnosis [address] [address] 09/18/2024 Kg Blackwood Plan Of Treatment Next Appt Details Provider Name:Janelle Mirela, 04/30/2025 10:15:00 AM, [address] [place] [address], [address], [phone] Provider Name:Janelle Mirela, 07/09/2025 09:00:00 AM, [address] [place] [address], [address], [phone] Progress Notes * ELENA PIERCEDOB:1945 ([age] yo M)Acc No.[id number]:09/18/2024 Progress Notes Patient: ELENA CHAMPAGNE Provider: Jonh VASQUEZ :1945 A ge:78 Y S ex:Male Date:09/18/2024 Address:[address] [place] [address] Subjective: * Chief Complaints: * F ollow-up Appt * Ocular Surgical History: Objective: Vision Examination: * Electronic signature of Darion Blackwood PA-C on 04/28/2025 at 03:57 PM EST Sign off status: Pending * Provider: Jonh VASQUEZ Date: 0 09/18/2024 Generated for Kassandra hope/Molly/Ramy on: 1 06/29/2024 03:57 PM EST
--- OUTSIDE RECORDS SUMMARY | 2024-10-01 09:30 | XMS_ITS ---
Author Organization [facility] [place] Address [address] [facility] [address] [place] [address] Care Team Providers Care Wall Mirror Department Supervisor Name Role Phone Kg Blackwood Unavailable [phone] REASON FOR VISIT Follow-up Appt Encounters Encounter Location Date Provider Diagnosis [address] [address] 10/01/2024 Kg Blackwood Plan Of Treatment Next Appt Details Provider Name:Janelle Mirela, 04/30/2025 10:15:00 AM, [address] [place] [address], [address], [phone] Provider Name:Janelle Mirela, 07/09/2025 09:00:00 AM, [address] [place] [address], [address], [phone] Progress Notes * ELENA PIERCEDOB:1945 ([age] yo M)Acc No.[id number]:10/01/2024 Progress Notes Patient: ELENA CHAMPAGNE Provider: Jonh VASQUEZ :1945 A ge:78 Y S ex:Male Date:10/01/2024 Address:[address] [place] [address] Subjective: * Chief Complaints: * F ollow-up Appt * Ocular Surgical History: Objective: Vision Examination: * Electronic signature of Darion Blackwood PA-C on 04/28/2025 at 03:57 PM EST Sign off status: Pending * Provider: Jonh VASQUEZ Date: 0 10/01/2024 Generated for Kassandra hope/Molly/Ramy on: 1 06/29/2024 03:57 PM EST
--- OUTSIDE RECORDS SUMMARY | 2024-11-02 08:45 | XMS_ITS ---
Author Organization [facility] [place] Address [address] [place] [address] Care Team Providers Care Machine Chocolate Molder Name Role Phone Kg Blackwood Unavailable [phone] Allergies Allergen (clinical drug ingredient) Drug/Non Drug Allergy documented on EMR Reaction Allergy Type Onset Date Status clonazepam clonazePAM Unknown Drug Allergy Activ e sulindac Sulindac Unknown Drug Allergy Active torsemide Torsemide Unknown Drug Allergy Active REASON FOR VISIT Follow-up Appt with Friend (shonna) Medications Medication SIG (Take, Route, Frequency, Duration) Notes Start Date End Date Status Spironolactone 25 MG Tablet 1 tablet Ora lly Once a day Active Tadalafil 20 MG Tablet 1 tablet as neede d Orally Once a day Active Allopurinol 300 MG Tablet 1 tablet Orall y Once a day Active oxyBUTYnin Chloride 5 MG Tablet 1 tablet Orally Once a day Active Voltaren 1 % Gel as directed Externally Active Lexapro 10 MG Tablet 1 tablet Orally Onc e a day Active Fluticasone Propionate 50 MCG/ACT Suspension 1 spray in each nostril Nasally Twice a day Active amLODIPine Besylate-Valsartan 5-160 MG Tablet 1 tablet Orally Once a day Active Atorvastatin Calcium 20 MG Tablet 1 tablet Orally Once a day Active Loperamide HCl 2 MG Tablet 1 tablet as n eeded Orally Four times a day Active Meloxicam 7.5 MG Tablet 1 tablet Orally Once a day Active Omeprazole 20 MG Capsule Delayed Release 1 capsule 1/2 to 1 hour before morning meal Orally Once a day Active Vital Signs Temperature 98.2 degrees Fahrenheit 11/03/19 25 Blood pressure systolic 148 mm Hg 11/03/19 25 Blood pressure diastolic 80 mm Hg 025 Heart Rate 80 /min 11/02/2024 Respiratory Rate 12 /min 11/02/2024 Weight 213 lbs 11/02/2024 Oximetry 97 % 11/02/2024 Weight-kg 96.62 kg 11/02/2024 Encounters Encounter Location Date Provider Diagnosis [facility], [address] [place] [phone] 11/02/2024 Kg Blackwood Assessments Encounter Date Diagnosis (ICD Code) Assessment Notes Treatment Notes Treatment Clinical Notes Section Notes 11/02/2024 Pt reports feeling up and down-some days headache, some feels like running, some days slow hasnt take c pap in a couple months-f/u with sleep medicine-bee n over 2 years Plan Of Treatment Next Appt Details Follow Up: 4 Months, Reason: Echo f/u Provider Name:Janelle Mirela, 04/30/2025 10:15:00 AM, [address] [place] [address], [place], [address], [phone] Provider Name:Janelle Dietz, 07/09/2025 09:00:00 AM, [address] [place] [address], [place], [address], [phone] Progress Notes * ELENA PIERCEDOB:1945 ([age] yo M)Acc No.[id number]:11/02/2024 Progress Notes Patient: ELENA CHAMPAGNE Provider: Jonh VASQUEZ :1945 A ge:79 Y S ex:Male Date:11/02/2024 Address:[address] [place], [place] [id number] Subjective: * Chief Complaints: * F ollow-up Appt with Friend (shonna) * Surgical History: Denies Past Surgical History. * Hospitalization/Major Diagno stic Procedure: Denies Past Hospitalization. * Medications: T akingVoltaren 1 % Gel as directed Externally Tadalafil 20 MG Tablet 1 tablet as needed Orally Once a day Spironolactone 25 MG Tablet 1 tablet Orally Once a day oxyBUTYnin Chloride 5 MG Tablet 1 tablet Orally Once a day Omeprazole 20 MG Capsule Delayed Release 1 capsule 1/2 to 1 hour before morning meal Orally Once a day Meloxicam 7.5 MG Tablet 1 tablet Orally Once a day Loperamide HCl 2 MG Tablet 1 tablet as needed Orally Four times a day Lexapro 10 MG Tablet 1 tablet Orally Once a day Fluticasone Propionate 50 MCG/ACT Suspension 1 spray in each nostril Nasally Twice a day Atorvastatin Calcium 20 MG Tablet 1 tablet Orally Once a day amLODIPine Besylate-Valsartan 5-160 MG Tablet 1 tablet Orally Once a day Allopurinol 300 MG Tablet 1 tablet Orally Once a day Taking Voltaren 1 % Gel as directed Externally Taking Tadalafil 20 MG Tablet 1 tablet as needed Orally Once a day Taking Spironolactone 25 MG Tablet 1 tablet Orally Once a day Taking oxyBUTYnin Chloride 5 MG Tablet 1 tablet Orally Once a day Taking Omeprazole 20 MG Capsule Delayed Release 1 capsule 1/2 to 1 hour before morning meal Orally Once a day Taking Meloxicam 7.5 MG Tablet 1 tablet Orally Once a day Taking Loperamide HCl 2 MG Tablet 1 tablet as needed Orally Four times a day Taking Lexapro 10 MG Tablet 1 tablet Orally Once a day Taking Fluticasone Propionate 50 MCG/ACT Suspension 1 spray in each nostril Nasally Twice a day Taking Atorvastatin Calcium 20 MG Tablet 1 tablet Orally Once a day Taking amLODIPine Besylate-Valsartan 5-160 MG Tablet 1 tablet Orally Once a day Taking Allopurinol 300 MG Tablet 1 tablet Orally Once a day DiscontinuedBaclofen 5 MG Tablet 1 tablet with food or milk Orally Once a day Medication List reviewed and reconciled with the patientDiscontinued Baclofen 5 MG Tablet 1 tablet with food or milk Orally Once a day Medication List reviewed and reconciled with the patient * Allergies: c lonazePAMSulindacTorsemide Objective: * Vitals: B P: 148/80 mm Hg, HR: 80 /min, RR: 12 /min, Temp: 98.2 F, Oxygen sat %: 97 %, Wt: 213 lbs, Wt-k.62 kg. Assessment: * Assessment: Pt reports feeling up and do wn-some days headache, some feels like running, some days slow hasnt take c pap in a couple months-f/u with sleep medicine-been over 2 years Plan: * Follow Up: 4 Months (Reason: Echo f/u) Billing Information: * Procedure Codes: * Electronic signature of Darion Blackwood PA-C on 04/28/2025 at 03:56 PM EST Sign off status: Pending * Provider: Jonh VASQUEZ Date: 0 11/02/2024 Generated for Kassandra hope/Molly/Ramy on: 1 06/29/2024 03:56 PM EST
--- OUTSIDE RECORDS SUMMARY | 2025-03-04 09:30 | XMS_ITS ---
Author Organization [facility] [place] Address [address] [place] [address] Care Team Providers Care Building Economist Name Role Phone Janelle Dietz Unavailable [phone] Allergies Allergen (clinical drug ingredient) Drug/Non Drug Allergy documented on EMR Reaction Allergy Type Onset Date Status clonazepam clonazePAM Unknown Drug Allergy Activ e sulindac Sulindac Unknown Drug Allergy Active torsemide Torsemide Unknown Drug Allergy Active REASON FOR VISIT 4 month f/u, Patient indicates no concerns at the time of appointment. Medications Medication SIG (Take, Route, Frequency, Duration) Notes Start Date End Date Status Fluticasone Propionate 50 MCG/ACT Suspension 1 spray in each nostril Nasally Twice a day Active Atorvastatin Calcium 20 MG Tablet 1 tablet Orally Once a day Active amLODIPine Besylate-Valsartan 10-160 MG Tablet 1 tablet Orally Once a day; Duration: 90 days Active Allopurinol 300 MG Tablet 1 tablet Orall y Once a day; Duration: 90 days Active Baclofen 5 MG Tablet 1 tablet as needed Orally Once a day; Duration: 90 days 12/30/2024 Active Meloxicam 7.5 MG Tablet 1 tablet Orally Once a day Active Loperamide HCl 2 MG Tablet 1 tablet as n eeded Orally Four times a day Active Lexapro 10 MG Tablet 1 tablet Orally Onc e a day Active oxyBUTYnin Chloride 5 MG Tablet 1 tablet Orally Once a day Active Omeprazole 20 MG Capsule Delayed Release 1 capsule 1/2 to 1 hour before morning meal Orally Once a day Active Voltaren 1 % Gel as directed Externally Active Tadalafil 20 MG Tablet 1 tablet as neede d Orally Once a day Active Spironolactone 25 MG Tablet 1 tablet Ora lly Once a day Active Social History Section Notes: Patient indicates n/a to the above Vital Signs Blood pressure systolic 149 mm Hg 03/04/20 Blood pressure diastolic 72 mm Hg 025 Heart Rate 46 /min 03/04/2025 Respiratory Rate 16 /min 03/04/2025 Height 69 in 03/04/2025 Weight 213.8 lbs 03/04/2025 BMI 31.57 kg/m2 03/04/2025 Oximetry 97 % 03/04/2025 Height-cm 175.26 cm 03/04/2025 Weight-kg 96.98 kg 03/04/2025 Encounters Encounter Location Date Provider Diagnosis [facility] [place] [address] [place] [address] 03/04/2025 Janelle Dietz Plan Of Treatment Next Appt Details Provider Name:Janelle Mirela, 04/30/2025 10:15:00 AM, [address] [facility], [address] [facility], [place], [address], [phone] Provider Name:Janelle Mirela, 07/09/2025 09:00:00 AM, [address] [place] [address], Suite [facility], [place], [address], [phone] Progress Notes * ELENA PIERCEDOB:1945 ([age] yo M)Acc No.[id number]:03/04/2025 Progress Notes Patient: ELENA CHAMPAGNE Provider: Chet Dietz :1945 A ge:79 Y S ex:Male Date:03/04/2025 Address:[address] [place] [address] Subjective: * Chief Complaints: * 4 month f/uPatient indicates no concerns at the time of appointment. * Surgical History: No surgeries * Family History: F ather: . M other: . No Healthcare Proxy. * Social History: P atient indicates n/a to the above. * Medications: T akingVoltaren 1 % Gel [...] tablet Orally Once a day amLODIPine Besylate-Valsartan 10-160 MG Tablet 1 tablet Orally Once a day Allopurinol 300 MG Tablet 1 tablet Orally Once a day Baclofen 5 MG Tablet 1 tablet as needed Orally Once a day Taking Voltaren 1 [...] Orally Once a day Taking amLODIPine Besylate-Valsartan 10-160 MG Tablet 1 tablet Orally Once a day Taking Allopurinol 300 MG Tablet 1 tablet Orally Once a day Taking Baclofen 5 MG Tablet 1 tablet as needed Orally Once a day * Allergies: c lonazePAMSulindacTorsemideyesAllergies Verified. Objective: * Vitals: B P: 149/72 mm Hg, HR: 46 /min, RR: 16 /min, Oxygen sat %: 97 %, Ht: 69 in, Wt: 213.8 lbs, BMI: 31.57 Index, Wt-k.98 kg, Ht-cm: 175.26 cm, Body Surface Area: 2.17. Billing Information: * Procedure Codes: * Electronic signature of Pascual Dietz on 04/28/2025 at 03:57 PM EST Sign off status: Pending * Provider: Chet Dietz Date: Generated for Kassandra hope/Molly/Ramy on: 06/29/2024 03:57 PM EST
--- NOTE | 2025-04-28 12:48 | A.OFFVIS_ITS ---
Intake Visit Reasons: follow up after MRI AND SLEEP STUDY Allergies No Known Allergies Allergy (Verified 01/26/25 11:49) HPI Comments Details: This is a 79 yr old righthanded man who is here with his for evaluation of some morning headaches in the last 6 weeks usually relieved by taking 2 Tylenol within a couple of hours. He has no visual symptoms no sinus congestion. He has a history of obstructive sleep apnea but has not been using a mask for a few years. He is being treated for hypertension hyperlipidemia GERD prostatism. He is also noted to have some short-term memory issues in the last 4-6 months sometimes he has to think about where he is going although he still functions and works as a truck driver instructor. He sometimes uses a wrong word and has some word searching difficulties. There are no safety issues with his driving or getting lost. [facility] Medical History (Updated 04/28/25 @ 12:53 by Senthil Rao MD) Memory loss KENNY (obstructive sleep apnea) Hypertension HLD (hyperlipidemia) Physical Exam Vital Signs: BP 197/77, HR 76 Neuro Other: Mini Mental Status Exam Level of Consciousness:?Alert.? Orientation:?Knows correct year, month, date, day and season.?Knows correct city, county and state. Knows correct location and floor.? Registration:?Able to register 3 objects.? Attention:?Serial 7's performed?? accurately.? Recall:?Able to recall 3 out of 3 objects.? Language:?Normal spontaneous speech, fluency, repetition, naming, comprehension, reading, and writing.? ?? Total Score:?30/30.? Neurological Abnormal neurological findings:??None. ? Mental Status:?Alert and oriented X 3.?Normal attention, orientation, memory, and affect.? Cranial Nerves:?Pupils are equal, round and reactive to light. Fundoscopy shows normal disc bilaterally. External ocular muscles are intact. Visual villalta are full, no ptosis. Face is symmetrical, no facial weakness or droop. Facial sensations are normal.? Tongue protrudes in midline. Palate elevates symmetrically. Shoulder?? shrugging is normal.? Motor Examination:?Normal muscle tone, bulk and strength.?No atrophy or fasciculations.?No drift of the extended upper extremities.?Deep tendon reflexes are 2+.?Plantars?? are flexor.? ?Motor Strength:? Proximal Muscles (out of 5):?5 Distal Muscles (out of 5):?5 Neck Flexors (out of 5):?5 Neck Extensors (out of 5):?5 Deltoid (out of 5):?5 Biceps (out of 5):?5 Triceps (out of 5):?5 Serratus Anterior (out of 5):?5 Wrist Extensors (out of 5):?5 APB (out of 5):?5 Finger Spread (out of 5):?5 Ileopsoas (out of 5):?5 Quadriceps (out of 5):?5 Hamstrings (out of 5):?5 Tibialis Anterior (out of 5):?5 Peronei (out of 5):?5 EDB (out of 5):?5 Gastrocnemius (out of 5):?5 Straight Leg Raising:?90 degrees.? Sensory Exam:?Normal light touch,?? temperature, pinprick, vibration and joint- position sensations.?Rhomberg?? sign is absent.? Coordination:?No ataxia,?no titubation,?ityxba-fd-matr, fcbh-myva-pzia test, and rapid alternating?? movements were normal.? Gait Exam:?Normal. ? Cerebellar Signs:?Hpnhyj-ra-dfhg and?? lipi-rz-zqth is normal.?No dysdiadochokinesia.? Extrapyramidal System:?No tremor or?rigidity, normal facial expressions.?No bradykinesia. No bradyphrenia. Normal arm swing and posture. No propulsion or retropulsion.? Speech:?Normal,?no dysphasia or dysarthria.? General Examination GENERAL APPEARANCE:??Morbid obesity, in no acute distress?.? ?? HEAD:??normocephalic,?atraumatic.? ?? EYES:??sclera non-icteric,?conjunctiva clear.? ?? EARS:??auditory canal clear,?tympanic membrane intact, clear.? ?? NOSE:??no lesions.? ?? ORAL CAVITY:??gums normal,?mucosa moist,?no lesions.? ?? THROAT:??clear.? ?? NECK/THYROID:??no cervical lymphadenopathy,?thyroid normal,?neck supple, full range of motion,?no carotid bruit.? ?? SKIN:??no rashes,?no significant?? birthmarks.? ?? HEART:??S1, S2 normal,?no murmurs? ?? LUNGS:??clear anteriorly and ?posteriorly? ?? CHEST:??no gross rib deformity,?clear to ?auscultation.? ?? BACK:??normal exam of spine.? ?? MUSCULOSKELETAL:??normal.? ?? EXTREMITIES:??no edema.? ?? PERIPHERAL PULSES:??normal.? ?? PSYCH:??alert, oriented,?cognitive function intact,?cooperative with exam?,?alert,?? oriented,?cognitive ?function intact,?cooperative with exam.? 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 Old microhemorrhages likely related to hypertension. 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 04/27/25 Sleep study : very severe KENNY Code(s): G44.209 - Tension-type headache, unspecified, not intractable Category: Medical (2) Memory loss: Code(s): R41.3 - Other amnesia Category: Medical (3) KENNY (obstructive sleep apnea): Code(s): G47.33 - Obstructive sleep apnea (adult) (pediatric) Category: Medical Plan Start CPAP with autoPAP at 15cm pressure. BP needs better control . try to keep systolic Bp below 150 Orders: Orders AMB Respirator FIT Test Today G47.33 - Obstructive sleep apnea (adult) (pediatric) Coding Level of Care Code Est Pt Level 4 (31376) Diagnoses Tension headache G44.209 Memory loss R41.3 KENNY (obstructive sleep apnea) G47.33
--- OUTSIDE RECORDS SUMMARY | 2025-04-28 15:57 | XMS_ITS | Clinical Summary ---
Author Organization [facility] Prior to 10/10/[address] [place] [id number] Care Team Providers Care Securities And Real Estate Director Name Role Phone Jose Osorio MD Primary Care Provider [phone] Allergies No known active allergies Medications Medication [...] age to complete this topic Care Teams Securities And Real Estate Director Relationship Specialty Start Date End Date Jose Osorio MD [address] [place] [address] PCP - General Internal Medicine 08/19/20
--- OUTSIDE RECORDS SUMMARY | 2025-04-28 15:57 | XMS_ITS | Patient Health Record ---
Author Organization [facility] [place] Address [address] [facility] [place] [address] Care Team Providers Care Cracker And Cookie Machine Operator Name Role Phone Kg Blackwood Unavailable [phone] Migration, Provider Unavailable Unavailable Janelle Dietz Unavailable [phone] Allergies Allergen (clinical drug ingredient) Drug/Non Drug [...] Location Date Provider Diagnosis [facility] [place] [facility] [address] [facility] [address] [address] 06/23/2024 Kg Blackwood [facility], [address] [address] 06/23/2024 Provider Migration [facility], [address] [address] 09/18/2024 Kg Blackwood [facility], [address] [address] 10/01/2024 Kg Blackwood [facility] [place] [facility] [address] [facility] [address] [address] 11/02/2024 Kg Blackwood [facility], [address] [address] 03/04/2025 Janelle Sagan [facility], [address] [address] 12/08/2024 Janelle Sagan [facility], [address] [address] 12/30/2024 Janelle Sagan Muscle spasm M62.838 [facility] [place] [facility] [address] [facility] [address] [address] 02/01/2025 Janelle Sagan Muscle spasm M62.838 Assessments [...] Details Provider Name:Janelle Dietz, 04/30/2025 10:15:00 AM, [address] [facility] [address], [place], [address], [phone] Provider Name:Janelle Dietz, 07/09/2025 09:00:00 AM, [address] [facility] [address], [place], [address], [phone] Insurance Providers Payer Name Payer Address Payer Phone Subscriber Number Group Number Insured Name Patient Relationship to Insured Coverage Start Date Coverage End Date [facility] Medicare Plan [address] [address] [place] [address] [id number] ELENA PIERCE Self - patient is the insured Medical (General) History Surgical History Surgery Date(Month/Year) No surgeries
--- OUTSIDE RECORDS SUMMARY | 2025-04-28 15:57 | XMS_ITS | Encounter Summary ---
Author Organization [facility] Address [address] [place] [address] Care Team Providers Care Loss Prevention Manager Name Role Phone Kg Blackwood Primary Care Provider Encounter Details Date Type Department Care Team (Late st Contact Info) Description 06/23/2024 Lab Requisition [facility] [address] [place] [address] Kg Blackwood PA [address] [address] Chronic fatigue, unspecified; Pain in unspecified joint; [...] Hold for add-ons. 10/08/2024 8:03 AM EDT [facility] Comment:Auto resulted. Blood Venous blood specimen / Unknown 06/23/2024 06/23/2024 6:08 PM EST us Kg VASQUEZ LAB BLOOD ORDERABLES Final Res ult [facility]) [facility] [address] [place] [address], [place] [phone] * (ABNORMAL) CBC auto differential (06/23/2024 12:00 AM EST) WBC 7.6 4.8 - 10.8 K/mcL LAB HEMETOLOGY METHOD 06/23/2024 8:36 PM [facility] RBC 4.30(L) 4.50 - 5.50 M/mcL LAB HEMETOLOGY METHOD 06/23/2024 8:36 PM [facility] Hemoglobin 14.0 13.5 - 17.5 g/dL LAB HEMETOLOGY METHOD 06/23/2024 8:36 PM [facility] Hematocrit 42.9 42.0 - 54.0 % LAB HEMETOLOGY METHOD 06/23/2024 8:36 PM [facility] MCV 100.2(H) 79.0 - 98.0 FL LAB HEMETOLOGY METHOD 06/23/2024 8:36 PM [facility] MCH 32.7(H) 27.0 - 32.0 pcg LAB HEMETOLOGY METHOD 06/23/2024 8:36 PM [facility] MCHC 32.6 32.0 - 37.0 g/dL LAB HEMETOLOGY METHOD 06/23/2024 8:36 PM [facility] RDW 13.8 11.0 - 15.0 % LAB HEMETOLOGY METHOD 06/23/2024 8:36 PM [facility] Platelets 244 130 - 400 K/mcL LAB HEMETOLOGY METHOD 06/23/2024 8:36 PM [facility] MPV 9.8 7.0 - 11.0 FL LAB HEMETOLOGY METHOD 06/23/2024 8:36 PM [facility] NRBC 0.0 <1.0 % LAB HEMETOLOGY METHOD 06/23/2024 8:36 PM [facility] NRBC Absolute 0.00 <0.10 K/mcL LAB HEMETOLOGY METHOD 06/23/2024 8:36 PM [facility] Neutrophils Relative 55.2 % LAB HEMETOLOGY METHOD 06/23/2024 8:36 PM [facility] Lymphocytes Relative 26.3 % LAB HEMETOLOGY METHOD 06/23/2024 8:36 PM [facility] Monocytes Relative 11.3 % LAB HEMETOLOGY METHOD 06/23/2024 8:36 PM [facility] Eosinophils Relative 5.8 % LAB HEMETOLOGY METHOD 06/23/2024 8:36 PM [facility] Basophils Relative 0.7 % LAB HEMETOLOGY METHOD 06/23/2024 8:36 PM [facility] Immature Granulocytes Relative 0.7 % LAB HEMETOLOGY METHOD 06/23/2024 8:36 PM [facility] Neutrophils Absolute 4.20 1.50 - 7.00 K/mcL LAB HEMETOLOGY METHOD 06/23/2024 8:36 PM [facility] Lymphocytes Absolute 2.00 1.00 - 5.00 K/mcL LAB HEMETOLOGY METHOD 06/23/2024 8:36 PM [facility] Monocytes Absolute 0.86 0.20 - 1.00 K/mcL LAB HEMETOLOGY METHOD 06/23/2024 8:36 PM [facility] Eosinophils Absolute 0.44 0.00 - 0.50 K/mcL LAB HEMETOLOGY METHOD 06/23/2024 8:36 PM [facility] Basophils Absolute 0.05 0.00 - 0.20 K/mcL LAB HEMETOLOGY METHOD 06/23/2024 8:36 PM [facility] Immature Granulocytes Absolute 0.05(H) 0.00 - 0.03 K/mcL LAB HEMETOLOGY METHOD 06/23/2024 8:36 PM [facility] Blood Venous blood specimen / Unknown 06/23/2024 06/23/2024 6:08 PM EST Kg VASQUEZ LAB BLOOD ORDERABLES Final Res ult Performing Organization Address [facility]/ZIP Co de Phone Number [facility] [address] [place] [address], [place] [phone] * Prostate specific antigen screen (06/23/2024 12:00 AM EST) PSA 2.55 0.00 - 4.00 ng/mL LAB CHEMISTRY METHOD 06/23/2024 7:35 PM EST [facility] Blood Venous blood specimen / Unknown 06/23/2024 06/23/2024 6:08 PM EST Narrative [facility] - 06/23/2024 7:35 PM EST The Siemens [employer] Profound[employer] Labsaur Chemiluminescent Immunoassay is used. Results obtained with different assay methods or kits cannot be used interchangeably. Results cannot be interpreted as absolute evidence of the presence or absence of malignant disease. Kg VASQUEZ LAB BLOOD ORDERABLES Final Res ult Performing Organization Address [facility]/ZIP Co de Phone Number [facility] [address] [place] [address], [place] [phone] * Hemoglobin A1c (06/23/2024 12:00 AM EST) Hemoglobin A1C 5.1 <6.5 % LAB CHEMISTRY METHOD 06/23/2024 10:07 PM EST [facility] Mean Bld Glu Estim. 100 mg/dL LAB CHEMISTRY METHOD 06/23/2024 10:07 PM EST [facility] Blood Venous blood specimen / Unknown 06/23/2024 06/23/2024 6:08 PM EST Kg VASQUEZ LAB BLOOD ORDERABLES Final Res ult Performing Organization Address [facility]/ZIP Co de Phone Number [facility] [address] [place] [address], [place] [phone] * (ABNORMAL) Lipid panel with reflex to direct LDL (06/23/2024 12:00 AM EST) Cholesterol 152 0 - 200 mg/dL LAB CHEMISTRY METHOD 06/23/2024 7:35 PM [facility] Triglycerides 218(H) 0 - 150 mg/dL LAB CHEMISTRY METHOD 06/23/2024 7:35 PM [facility] HDL 46 >=40 mg/dL LAB CHEMISTRY METHOD 06/23/2024 7:35 PM [facility] LDL Calculated 62 0 - 100 mg/dL LAB CHEMISTRY METHOD 06/23/2024 7:35 PM [facility] VLDL Cholesterol John 43.6 mg/dL LAB CHEMISTRY METHOD 06/23/2024 7:35 PM [facility] Non HDL Chol. (LDL+VLDL) 106 <145 mg/dL LAB CHEMISTRY METHOD 06/23/2024 7:35 PM [facility] Chol/HDL Ratio 3.3 0.0 - 4.4 LAB CHEMISTRY METHOD 06/23/2024 7:35 PM [facility] Blood Venous blood specimen / Unknown 06/23/2024 06/23/2024 6:08 PM EST us Kg VASQUEZ LAB BLOOD ORDERABLES Final Res ult [facility] [address] [place] [address], * Comprehensive metabolic panel (06/23/2024 12:00 AM EST) Sodium 140 133 - 145 mmol/L LAB CHEMISTRY METHOD 06/23/2024 7:35 PM [facility] Potassium 4.0 3.5 - 5.5 mmol/L LAB CHEMISTRY METHOD 06/23/2024 7:35 PM [facility] Chloride 109 96 - 110 mmol/L LAB CHEMISTRY METHOD 06/23/2024 7:35 PM [facility] CO2 22 21 - 32 mmol/L LAB CHEMISTRY METHOD 06/23/2024 7:35 PM [facility] Anion Gap 9 3 - 11 LAB CHEMISTRY METHOD 06/23/2024 7:35 PM [facility] Glucose 100 70 - 100 mg/dL LAB CHEMISTRY METHOD 06/23/2024 7:35 PM [facility] BUN 14 5 - 25 mg/dL LAB CHEMISTRY METHOD 06/23/2024 7:35 PM [facility] Creatinine 1.14 0.70 - 1.30 mg/dL LAB CHEMISTRY METHOD 06/23/2024 7:35 PM [facility] eGFR 67 >=60 mL/min/1. 73m2 LAB CHEMISTRY METHOD 06/23/2024 7:35 PM [facility] Comment:Calculation based on the Chronic Kidney Disease Epidemiology Collaboration (CKD-EPI) equation refit without adjustment for race. BUN/Creatinine Ratio 12.3 LAB CHEMISTRY METHOD 06/23/2024 7:35 PM [facility] Calcium 8.7 8.5 - 10.5 mg/dL LAB CHEMISTRY METHOD 06/23/2024 7:35 PM [facility] AST (SGOT) 22 10 - 42 unit/L LAB CHEMISTRY METHOD 06/23/2024 7:35 PM [facility] ALT (SGPT) 17 10 - 60 unit/L LAB CHEMISTRY METHOD 06/23/2024 7:35 PM [facility] Alkaline Phosphatase 111 42 - 121 unit/L LAB CHEMISTRY METHOD 06/23/2024 7:35 PM [facility] Total Protein 7.2 6.0 - 8.0 g/dL LAB CHEMISTRY METHOD 06/23/2024 7:35 PM [facility] Albumin 3.3 3.2 - 5.0 g/dL LAB CHEMISTRY METHOD 06/23/2024 7:35 PM EST [facility] Total Bilirubin 0.7 0.0 - 1.4 mg/dL LAB CHEMISTRY METHOD 06/23/2024 7:35 PM EST [facility] Blood Venous blood specimen / Unknown 06/23/2024 06/23/2024 6:08 PM EST Kg VASQUEZ LAB BLOOD ORDERABLES Final Res ult [facility] [address] [place] [address], documented in this encounter Visit Diagnoses Diagnosis Chronic fatigue, unspecified Pain in unspecified joint Hyperlipidemia, unspecified Essential (primary) hypertension Unspecified essential hypertension documented in this encounter Care Teams Loss Prevention Manager Relationship Specialty Start Date End Date Kg Blackwood PA [address] [address] PCP - General Primary Care 10/14/24 documented as of this encounter
--- OUTSIDE RECORDS SUMMARY | 2025-04-28 15:58 | XMS_ITS | Clinical Summary ---
Author Organization [address] Address [address] [place] [address] Phone Care Team Providers Care Lip Cutter Name Role Phone Kg Blackwood Primary Care Provider [phone] Allergies No known active allergies Medications allopurinoL [...] Department Care Team Description 02/26/2025 Results Follow-Up [facility] Cardiology [facility] [address] [place] [address] Heaven Chan MD 02/19/2025 1:00 PM EDT Ancillary Procedure [facility] Cardiology [facility] [address] [place] [address] Abnormal EKG 02/09/2025 Results Follow-Up [facility] Cardiology [facility] [address] [place] [address] Heaven Chan MD 02/03/2025 1:30 PM EDT Ancillary Procedure [facility] [address] [address] Hypertension, unspecified type from Last 3 Months [...] on file Sexual Orientation Not on file Last Filed Vital Signs [...] 62 mL CV PACS Left [facility] Minor [place] 5.3 cm CV PACS Left [facility] Major [place] 5.3 cm CV PACS [place] Area Sys [...] Proximal 1.4 cm CV PACS MV Deceleration [place] 2.6 m/s2 CV PACS E Wave Deceleration [...] mg/dL LAB CHEMISTRY METHOD 06/23/2024 7:35 PM [facility] Triglycerides 218(H) 0 - 150 mg/dL LAB CHEMISTRY METHOD 06/23/2024 7:35 PM [facility] HDL 46 >=40 mg/dL LAB CHEMISTRY METHOD 06/23/2024 7:35 PM [facility] LDL Calculated 62 0 - 100 mg/dL LAB CHEMISTRY METHOD 06/23/2024 7:35 PM [facility] VLDL Cholesterol John 43.6 mg/dL LAB CHEMISTRY METHOD 06/23/2024 7:35 PM [facility] Non HDL Chol. (LDL+VLDL) 106 <145 mg/dL LAB CHEMISTRY METHOD 06/23/2024 7:35 PM [facility] Chol/HDL Ratio 3.3 0.0 - 4.4 LAB CHEMISTRY METHOD 06/23/2024 7:35 PM [facility] Blood Venous blood specimen / Unknown 06/23/2024 06/23/2024 6:08 PM EST us Kg VASQUEZ LAB BLOOD ORDERABLES Final Res ult [facility] [address] [place] [address], [place] [phone] * Comprehensive metabolic panel (06/23/2024 12:00 AM EST) Sodium 140 133 - 145 mmol/L LAB CHEMISTRY METHOD 06/23/2024 7:35 PM [facility] Potassium 4.0 3.5 - 5.5 mmol/L LAB CHEMISTRY METHOD 06/23/2024 7:35 PM [facility] Chloride 109 96 - 110 mmol/L LAB CHEMISTRY METHOD 06/23/2024 7:35 PM [facility] CO2 22 21 - 32 mmol/L LAB CHEMISTRY METHOD 06/23/2024 7:35 PM [facility] Anion Gap 9 3 - 11 LAB CHEMISTRY METHOD 06/23/2024 7:35 PM [facility] Glucose 100 70 - 100 mg/dL LAB CHEMISTRY METHOD 06/23/2024 7:35 PM [facility] BUN 14 5 - 25 mg/dL LAB CHEMISTRY METHOD 06/23/2024 7:35 PM [facility] Creatinine 1.14 0.70 - 1.30 mg/dL LAB CHEMISTRY METHOD 06/23/2024 7:35 PM [facility] eGFR 67 >=60 mL/min/1. 73m2 LAB CHEMISTRY METHOD 06/23/2024 7:35 PM [facility] Comment:Calculation based on the Chronic Kidney Disease Epidemiology Collaboration (CKD-EPI) equation refit without adjustment for race. BUN/Creatinine Ratio 12.3 LAB CHEMISTRY METHOD 06/23/2024 7:35 PM [facility] Calcium 8.7 8.5 - 10.5 mg/dL LAB CHEMISTRY METHOD 06/23/2024 7:35 PM [facility] AST (SGOT) 22 10 - 42 unit/L LAB CHEMISTRY METHOD 06/23/2024 7:35 PM [facility] ALT (SGPT) 17 10 - 60 unit/L LAB CHEMISTRY METHOD 06/23/2024 7:35 PM [facility] Alkaline Phosphatase 111 42 - 121 unit/L LAB CHEMISTRY METHOD 06/23/2024 7:35 PM [facility] Total Protein 7.2 6.0 - 8.0 g/dL LAB CHEMISTRY METHOD 06/23/2024 7:35 PM [facility] Albumin 3.3 3.2 - 5.0 g/dL LAB CHEMISTRY METHOD 06/23/2024 7:35 PM [facility] Total Bilirubin 0.7 0.0 - 1.4 mg/dL LAB CHEMISTRY METHOD 06/23/2024 7:35 PM [facility] Blood Venous blood specimen / Unknown 06/23/2024 06/23/2024 6:08 PM EST us Kg VSAQUEZ LAB BLOOD ORDERABLES Final Res ult [facility] [address] [place] [address], from Last 3 Months or Most Recently Relevant to Health Maintenance Insurance [employer] Care Teams Lip Cutter Relationship Specialty Start Date End Date gK Blackwood PA [address] [place] [address] PCP - General Primary Care 10/14/24
== END 2025-04-28 13:08 | disposition home or self-care (01) ==
LOC: HO.HSM 12:06
PROVIDERS: PCP Internal Medicine; Visit Provider Psychiatry & Neurology Neurology
DX: G44.209 Tension-type headache, unspecified, not intractable (principal); R41.3 Other amnesia; G47.33 Obstructive sleep apnea (adult) (pediatric)
CPT/HCPCS: 99214

== ENCOUNTER → 2025-04-28 12:05 | Outpatient (BNVA) | payer MEDICARE, SELFPAY | PROVIDERS: PCP Internal Medicine; Visit Provider Psychiatry & Neurology Neurology | DX: Z71.2 Person consulting for explanation of examination or test findings (principal); G44.209 Tension-type headache, unspecified, not intractable; R41.3 Other amnesia; G47.33 Obstructive sleep apnea (adult) (pediatric) | CPT/HCPCS: 99212 ==